=== PATIENT | female | born 1935 | race Caucasian/White ===

== ENCOUNTER 2021-06-18 14:27 | Inpatient (IN) | payer MEDICARE, OTHER, SELFPAY ==
[2021-06-18 14:32] VITALS: BP 174/74; PULSE 57; RESP 18; TEMP 36.6; O2SAT 99; BMI 25.7
[2021-06-18 14:46] LABS: Bedside Glucose 218 mg/dL (70-110)
--- NOTE | 2021-06-18 15:30 | CT_ITS ---
STUDY: CT BRAIN WITHOUT CONTRAST REASON FOR EXAM: Female, 85 years old. weakness RADIATION DOSAGE (If Supplied By Facility): CTDIvol = ( 44.99 ) mGy, DLP = ( 745.49 ) mGycm TECHNIQUE: Transaxial CT imaging of the brain was performed without administration of intravenous contrast material. Individualized dose optimization techniques were used for this CT. COMPARISON: No relevant priors. FINDINGS: Normal soft tissue structures. Normal calvarium. Encephalomalacia left occipital lobe. Normal size ventricles and extra-axial spaces for the patient''s age. Normal white matter tracts of the cerebral hemispheres. Normal basal ganglia and thalami. Normal brainstem. Normal cerebellum. There is no intracranial hemorrhage. There are no findings of an acute ischemic infarction. Normal visualized paranasal sinuses. CT/Brain/Head without Contrast IMPRESSION: Left occipital encephalomalacia. No acute disease. Electronically Signed: Rodney Elias MD at 16:11 EST , Service support ,
--- NOTE | 2021-06-18 15:31 | EKG12_ITS ---
Test Reason : LOW BLOOD SUGAR Blood Pressure : / mmHG Vent. Rate : 073 BPM Atrial Rate : 073 BPM P-R Int : 182 ms QRS Dur : 066 ms QT Int : 350 ms P-R-T Axes : 078 034 187 degrees QTc Int : 385 ms Normal sinus rhythm Normal ECG Confirmed by LAKESHIA MENEZES, MARVEL ([id number]), avid editor TEA ENGLISH ([id number]) on 06/21/2021 12:13:36 PM Referred By: CHUCKY Confirmed By:MARVEL ASHER MD
--- NOTE | 2021-06-18 15:33 | EDS_ITS ---
HPI History of Present Illness Chief Complaint: Hypoglycemia Narrative Narrative: Patient called because she has been feeling weak at home. She states she has been weak today but she has felt a bit weak the last couple days. She has not really been eating or drinking much. But she is not nauseated vomiting having diarrhea or any abdominal pain. No cough no chest pain no trouble breathing. No specific symptoms other than she just feels kind of weak. She does live alone at home. She knows she is on Amaryl for diabetes. She takes Eliquis for blood pressure. She has had bypass surgery about 5 years ago. Never had a stroke. She is on other meds but do not know what they are. She tried to bring them but she grabbed the wrong bag. Blood sugar was about 45 at home. She does feel better now that her blood sugar is up. Nothing specifically made her symptoms worse. Glucose did make them better. EMS was concerned because it seems like the patient is hoarding. However she states she is happy at her house. [facility] Medical History Afib Home Medications allopurinol 100 mg PO DAILY 06/18/21 [History Last Taken Unknown] apixaban [Eliquis] 5 mg PO BID 06/18/21 [History Last Taken Unknown] atorvastatin 40 mg PO DAILY 06/18/21 [History Last Taken Unknown] clonidine HCl 0.2 mg PO BID 06/18/21 [History Last Taken Unknown] diltiazem HCl [Cartia XT] 120 mg PO DAILY 06/18/21 [History Last Taken Unknown] glimepiride 4 mg PO DAILY 06/18/21 [History Last Taken Unknown] Allergy/AdvReac Type Severity Reaction Status Date / Time No Known Allergies Allergy Verified 06/18/21 14:41 Social History Smoking Status: Never smoker ROS ROS ED Constitutional Constitutional ED: Denies chills or fever(s) Eyes Eyes: Denies blurry vision ENT ENT ED: Denies rhinorrhea or sore throat Cardiovascular Cardiovascular: Denies chest pain, palpitations or racing heartbeat Respiratory/Chest Respiratory/Chest: Denies cough, dyspnea, dyspnea on exertion or sputum Gastrointestinal Gastrointestinal: Denies abdominal pain, diarrhea, melena, nausea or vomiting Genitourinary Genitourinary ED: Denies dysuria or hematuria Musculoskeletal Musculoskeletal: Denies myalgias Integumentary Denies rash Neurologic Neurologic: Denies headache(s), paresthesias or weakness Psychiatric Psychiatric: Denies anxiety or depression Endocrine Endocrinology: Denies polydipsia or polyuria Allergic/Immunologic Allergic/Immunologic ED: Denies mouth swelling or urticaria EXAM Physical Exam Const Vital Signs: 06/18/21 14:32 06/18/21 14:38 06/18/21 16:40 Temperature 97.9 F Temperature Source Oral Pulse Rate 57 L Respiratory Rate 18 Respiratory Pattern Normal Blood Pressure 174/74 H Blood Pressure Mean 107 Pulse Ox 99 96 Oxygen Delivery Method Room Air 06/18/21 18:08 Temperature Temperature Source Pulse Rate 70 Respiratory Rate 18 Respiratory Pattern Blood Pressure 168/70 H Blood Pressure Mean 102 Pulse Ox 96 Oxygen Delivery Method Room Air Patient is awake alert and appropriate. She is very cooperative. She is not the best informant for details but she is pretty good. She is nontoxic in appearance. She drank her jug of milk and had some applesauce. I am encouraging her to eat more food. Positive well nourished and well developed General Appearance ED: well developed and NAD; Negative for cyanotic or diaphoretic HEENT Reports dry mucous membranes HEENT Narrative: Mildly dry mucous membranes. I see no sign of head trauma or injury. Mouth ED: Yes dry mucous membranes Mouth: dry mucous membranes Eyes PERRL and EOMs intact bilaterally Neck no lymphadenopathy and no JVD Chest Wall inspection of chest normal Chest Narrative: Well-healed median sternotomy Resp normal respiratory effort and clear to auscultation bilaterally Cardio regular rate and regular rhythm GI normal to inspection, nondistended, normoactive bowel sounds Back/Spine no CVA tenderness Extremity normal to inspection General Extremety ED: Negative for edema or tenderness General Extremity: Negative for edema Psych mental status grossly normal Skin no rashes or lesions noted and no wounds MDM MDM MDM Narrative Medical decision making narrative: Blood work showed essentially normal CBC. Electrolytes show an acute kidney injury. I do not have old creatinine but she has no history of kidney disease and she does look dehydrated and has a history consistent with dehydration. Therefore I think this is an acute process. LFTs show no marked abnormalities. Glucose was better at 215. She did eat some food here. Chest x-ray showed no marked acute changes. Her Covid was positive. Urine did not show sign of infection. We tried to walk the patient. She did not desaturate but she is far too weak to even begin getting up out of bed. She evidently has been sitting in bed in a chair for about 2 days. She has not been eating. I do not think this lady can go home. She does live alone. I discussed case with the hospitalist. Lab Data Attestation: I reviewed the patient's lab results. Labs: Laboratory Results - last 24 hr 06/18/21 06/18/21 06/18/21 14:37 14:41 14:41 WBC 5.5 RBC 4.05 L Hgb 12.1 Hct 37.5 MCV 92.6 MCH 29.9 MCHC 32.3 RDW Std Deviation 47.7 H RDW Coeff of Bin 14.0 Plt Count 212 MPV 10.4 Immature Gran % (Auto) 0.200 Neut % (Auto) 87.1 H Lymph % (Auto) 7.6 L Pine % (Auto) 5.1 Eos % (Auto) 0.0 Baso % (Auto) 0.0 Absolute Neuts (auto) 4.8 Absolute Lymphs (auto) 0.42 L Nucleated RBC % 0 Differential Comment SCANNED Sodium 135 L Potassium 3.9 Chloride 103 Carbon Dioxide 23.0 Anion Gap 9 BUN 44 H Creatinine 2.35 H Estim Creat Clear Calc 14.65 Est GFR (MDRD) Af Amer 25 L Est GFR (MDRD) Non-Af 21 L BUN/Creatinine Ratio 18.7 Glucose 215 H Calcium 10.1 Total Bilirubin 0.50 AST 49 H ALT 33 Alkaline Phosphatase 53 Troponin I High Sens 43 Total Protein 8.2 Albumin 2.9 L Globulin 5.3 H Albumin/Globulin Ratio 0.5 L Urine Color Urine Clarity Urine pH Ur Specific [place] Urine Protein Urine Glucose (UA) Urine Ketones Urine Occult Blood Urine Nitrite Urine Bilirubin Urine Urobilinogen Ur Leukocyte Esterase Urine RBC Urine WBC Ur Squamous Epith Cells Amorphous Sediment Urine Bacteria Urine Mucus POC Glucose 218 H 06/18/21 17:12 WBC RBC Hgb Hct MCV MCH MCHC RDW Std Deviation RDW Coeff of Bin Plt Count MPV Immature Gran % (Auto) Neut % (Auto) Lymph % (Auto) Pine % (Auto) Eos % (Auto) Baso % (Auto) Absolute Neuts (auto) Absolute Lymphs (auto) Nucleated RBC % Differential Comment Sodium Potassium Chloride Carbon Dioxide Anion Gap BUN Creatinine Estim Creat Clear Calc Est GFR (MDRD) Af Amer Est GFR (MDRD) Non-Af BUN/Creatinine Ratio Glucose Calcium Total Bilirubin AST ALT Alkaline Phosphatase Troponin I High Sens Total Protein Albumin Globulin Albumin/Globulin Ratio Urine Color Yellow Urine Clarity Clear Urine pH 5.0 Ur Specific [place] 1.025 Urine Protein 100 H Urine Glucose (UA) 100 H Urine Ketones 5 H Urine Occult Blood 25 H Urine Nitrite Negative Urine Bilirubin Negative Urine Urobilinogen Normal Ur Leukocyte Esterase Negative Urine RBC 0 SEEN Urine WBC 0 SEEN Ur Squamous Epith Cells 0 SEEN Amorphous Sediment 2+ Urine Bacteria 0 SEEN Urine Mucus 0 SEEN POC Glucose Radiography Diagnostic Testing: Clinical Impression(s) from Imaging Studies Brain CT 06/18/21 15:30 IMPRESSION: Left occipital encephalomalacia. No acute disease. Electronically Signed: Rodney Elias MD at 16:11 EST , Service support , Chest X-Ray 06/18/21 15:55 IMPRESSION: COPD. Sternotomy. No acute disease. Electronically Signed: Rodney Elias MD at 16:09 EST , Service support , Discharge Plan Triage Chief Complaint: Hypoglycemia ED Provider: Dalton Richard Dx/Rx/DC Orders Clinical Impression: Acute kidney injury, COVID, Inability to ambulate due to multiple joints, Acute dehydration, Hypoglycemia associated with diabetes Prescriptions: No Action atorvastatin 40 mg tablet 40 mg PO DAILY RF: 0 allopurinol 100 mg tablet 100 mg PO DAILY RF: 0 clonidine HCl 0.2 mg tablet 0.2 mg PO BID RF: 0 glimepiride 4 mg tablet 4 mg PO DAILY RF: 0 diltiazem HCl [Cartia XT] 120 mg capsule,extended release 24hr 120 mg PO DAILY RF: 0 Eliquis 5 mg Tablet 5 mg PO BID RF: 0 Primary Care Provider: Sravan Rossi Referrals: Sravan Rossi MD [Primary Care Provider] - Disposition Disposition: [facility] ([facility] Care [facility]
[2021-06-18 15:47] LABS: Absolute Lymphocyte Count 0.42 X10^3/uL (0.83-4.51); Absolute Neutrophil Count 4.8 X10^3/uL (2.0-7.7); Hematocrit 37.5 % (37-47); Hemoglobin 12.1 g/dL (12.0-15.0); Lymphocyte # 0.42 X10^3/ul (0.83-4.51); Lymphocyte % 7.6 % (19-41); Mean Corp Hgb Conc 32.3 g/dL (32-36); Mean Corpuscular Hgb 29.9 pg (27.0-32.0); Mean Corpuscular Volume 92.6 fL (81-99); Mean Platelet Vol. 10.4 fl (6.2-12.0); Monocyte# 0.28 X10^3/uL; Monocyte% 5.1 % (0-10); NRBC Flagged by Analyzer 0 % (0-5); Neutrophil % 87.1 % (47-70); POSITIVE DIFFERENTIAL YES; Platelet Count 212 K/mm3 (150-450); RBC Distribution Width SD 47.7 fl (35.1-43.9); Red Blood Count 4.05 M/mm3 (4.2-5.4); White Blood Count 5.5 K/mm3 (4.4-11.0)
[2021-06-18 15:53] LABS: Differential Indicated SCAN CRITERIA MET
--- NOTE | 2021-06-18 15:55 | RAD_ITS ---
STUDY: X-RAY CHEST REASON FOR EXAM: Female, 85 years old. cough TECHNIQUE: Single frontal view of the chest. COMPARISON: None. FINDINGS: Sternotomy wires noted. Left perihilar mediastinal clips. There is hyperinflation of the lungs consistent with chronic obstructive lung disease (COPD). There is no demonstrated pleural abnormality. Normal size heart. Normal mediastinum and mathieu. Normal visualized pulmonary arteries. Normal visualized aortic arch and descending thoracic aorta. There is a dextroscoliosis of the thoracic spine. Normal visualized ribs, clavicles, and shoulders. There is no demonstrated abnormality of the visualized soft tissue structures of the upper abdomen. RAD/Chest 1 View (Portable) IMPRESSION: COPD. Sternotomy. No acute disease. Electronically Signed: Rodney Elias MD at 16:09 EST , Service support ,
[2021-06-18 16:16] LABS: ALB/GLOB Ratio 0.5 RATIO (0.9-2.4); AST(SGOT) 49 U/L (15-37); Alanine Aminotransfer ALT/SGPT 33 U/L (13-56); Albumin, Serum 2.9 g/dL (3.2-5.0); Alkaline Phosphatase 53 U/L (45-117); Anion Gap 9 (5-15); BUN 44 mg/dL (7-18); BUN/Creat Ratio 18.7 RATIO (10-20); Calcium,Total 10.1 mg/dL (8.5-10.1); Chloride 103 mmol/L (98-107); Creatinine, Serum 2.35 mg/dL (0.55-1.02); EST Glomerular Filtration Rate 21 mL/min (>60); Est Glom Filt Rate - Afr Amer 25 mL/min (>60); Estimated Creatinine Clearance 14.65 ml/min; Globulin 5.3 g/dL (2.2-4.2); Glucose 215 mg/dL (74-106); Potassium 3.9 mmol/L (3.5-5.1); Protein, Total 8.2 g/dL (6.4-8.2); Sodium Level 135 mmol/L (136-145); Troponin-I HS 43 pg/mL (3.0-54.0)
[2021-06-18 16:35] LABS: Differential Comment SCANNED
[2021-06-18 16:40] VITALS: O2SAT 96
[2021-06-18 17:17] LABS: Bacteria 0 SEEN /hpf (None Seen); Mucous, Urine 0 SEEN /hpf (<or=2+); Red Blood Cells-Urine 0 SEEN /hpf (0-5); Squamous Epithelial Cells - UA 0 SEEN /hpf (5-10); White Blood Cells 0 SEEN /hpf (0-5)
[2021-06-18 17:31] LABS: Color, Urine Yellow (Yellow); Glucose, Dipstick 100 mg/dl (Normal); Ketone-Dipstick 5 mg/dl (Negative); Leukocyte Esterase-Dipstick Negative /ul (Negative); Nitrite-Dipstick Negative (Negative); Occult Blood-Urine 25 /ul (Negative); Protein-Dipstick 100 mg/dl (Negative); Specific Gravity, Urine 1.025 (1.002-1.030); Urine Bilirubin Dipstick Negative (Negative); Urine Clarity Clear (Clear); Urine Urobilinogen Normal (Normal)
[2021-06-18 17:42] LABS: Amorphous Sediment 2+
[2021-06-18 18:08] VITALS: BP 168/70; PULSE 70; RESP 18; O2SAT 96
--- NOTE | 2021-06-18 18:11 | HP.PCM.HOS_ITS ---
HPI - General General Date of Admission: 06/18/21 HPI Narrative HAL EVERETT, is a 85 F with a PMh as outlined who presented via the ED on 06/18/2021 with a complaint of weakness and lethargy. This had been going on for a couple of days prior to admission, and she admitted to not eating or drinking much. She denied any fever, chills, nausea, cough, chest pain, shortness of breath or any other symptoms. She said she hadnt been able to get out of her chair for the last couple of days. She called the EMS and she was found to be hypoglycemic with blood sugar of 45. She was on glimepiride at home which she has not been taking at home as her blood sugars have been running low at home. Hypoglycemia resolved with administration of a meal in the ED. During her workup, she was found to be covid positive. Vitals were BP of 168/70, MS of 70, RR of 18 and oxygen sats of 96% on room air. CBC was unremarkable, and BMp showed sodium of 135, and Cr of 2.35, with no known baseline. Glucose had come up to 215 after she had a meal in the ED. Urinalysis was negative for bacteria or any evidence of UTI. COVID antigen test was negative; CXR showed evidence of COPD and sternotomy but no acute disease. Patient was very weak in the ED and couldnt even stand without assistance. She therefore couldnt be discharged home, and was admitted to be managed for lethargy and weakness and asymptomatic covid pneumonia as well as hypoglycemia. [facility]LY [facility], [facility] Medical History Afib Home Medications allopurinol 100 mg PO DAILY 06/18/21 [History Last Taken Unknown] apixaban [Eliquis] 5 mg PO BID 06/18/21 [History Last Taken Unknown] atorvastatin 40 mg PO DAILY 06/18/21 [History Last Taken Unknown] clonidine HCl 0.2 mg PO BID 06/18/21 [History Last Taken Unknown] diltiazem HCl [Cartia XT] 120 mg PO DAILY 06/18/21 [History Last Taken Unknown] glimepiride 4 mg PO DAILY 06/18/21 [History Last Taken Unknown] Allergy/AdvReac Type Severity Reaction Status Date / Time No Known Allergies Allergy Verified 06/18/21 14:41 Social History Smoking Status: Never smoker ROS Constitutional Constitutional: Reports fatigue, malaise and weakness; Denies anorexia, change in weight, chills or fever(s) Eyes Eyes: Denies change in vision ENT HEENT: Denies dysphagia, headache(s), nasal congestion, nasal discharge, sinus pressure or sore throat Cardiovascular Cardiovascular: Denies chest pain, dyspnea on exertion, edema, lightheadedness, orthopnea, palpitations, paroxysmal nocturnal dyspnea or rapid heart rate Respiratory/Chest Respiratory/Chest: Reports dyspnea; Denies cough, productive cough, shortness of breath at rest, shortness of breath with exertion or wheezing Gastrointestinal Gastrointestinal: Reports diarrhea; Denies abdominal pain, constipation, dyspepsia, nausea or vomiting Genitourinary Genitourinary: Denies dysuria Musculoskeletal Musculoskeletal: Denies arthralgias or back pain Neurologic Neurologic: Denies confusion, dizziness, focal weakness, headache(s), numbness, paresthesias, seizures or syncope Endocrine Endocrinology: Denies change in body appearance Hematologic/Lymphatic Hematologic/Lymphatic: Denies anemia Allergic/Immunologic Allergic/Immunologic: Denies asthma Vital Signs Vital Signs Vital Signs: 06/18/21 14:32 06/18/21 14:38 06/18/21 16:40 Temperature 97.9 F Temperature Source Oral Pulse Rate 57 L Respiratory Rate 18 Respiratory Pattern Normal Blood Pressure 174/74 H Blood Pressure Mean 107 Pulse Ox 99 96 Oxygen Delivery Method Room Air 06/18/21 18:08 Temperature Temperature Source Pulse Rate 70 Respiratory Rate 18 Respiratory Pattern Blood Pressure 168/70 H Blood Pressure Mean 102 Pulse Ox 96 Oxygen Delivery Method Room Air Weight Weight: 119 lb 0.794 oz Body Mass Index (BMI) 25.7 Physical Exam Const alert and oriented x3 General Appearance: cooperative Orientation / Consciousness: lethargic HEENT normocephalic and hearing grossly normal bilaterally HEENT Narrative: dry oral mucosa Eyes PERRL, EOMs intact bilaterally and conjunctivae normal Neck no lymphadenopathy, supple and no JVD Resp normal respiratory effort, no retractions, no use of accessory muscles and clear to auscultation bilaterally Cardio regular rate, regular rhythm, S1 normal heart sound, S2 normal heart sound and no murmurs GI normal to inspection, nondistended, normoactive bowel sounds, soft to palpation, non-tender, non-distended and hepatosplenomegaly Extremity normal to inspection, full ROM and no clubbing, cyanosis or edema Peripheral Pulses: Yes pulses 2+ throughout Skin no rashes or lesions noted Neuro oriented x3, CN's II-XII intact bilaterally and moves all extremities Sensorium / Orientation: awake and alert Psych affect normal Results Lab / Micro Data Result Diagrams: 06/18/21 14:41 06/18/21 14:41 Labs: Laboratory Results - last 24 hr 06/18/21 14:37: POC Glucose 218 H 06/18/21 14:41: WBC 5.5, RBC 4.05 L, Hgb 12.1, Hct 37.5, MCV 92.6, MCH 29.9, MCHC 32.3, RDW Std Deviation 47.7 H, RDW Coeff of Bin 14.0, Plt Count 212, MPV 10.4, Immature Gran % (Auto) 0.200, Neut % (Auto) 87.1 H, Lymph % (Auto) 7.6 L, [place] % (Auto) 5.1, Eos % (Auto) 0.0, Baso % (Auto) 0.0, Absolute Neuts (auto) 4.8, Absolute Lymphs (auto) 0.42 L, Nucleated RBC % 0, Differential Comment SCANNED 06/18/21 14:41: Sodium 135 L, Potassium 3.9, Chloride 103, Carbon Dioxide 23.0, Anion Gap 9, BUN 44 H, Creatinine 2.35 H, Estim Creat Clear Calc 14.65, Est GFR (MDRD) Af Amer 25 L, Est GFR (MDRD) Non-Af 21 L, BUN/Creatinine Ratio 18.7, Glucose 215 H, Calcium 10.1, Total Bilirubin 0.50, AST 49 H, ALT 33, Alkaline Phosphatase 53, Troponin I High Sens 43, Total Protein 8.2, Albumin 2.9 L, Breanne bulin 5.3 H, Albumin/Globulin Ratio 0.5 L 06/18/21 17:12: Urine Color Yellow, Urine Clarity Clear, Urine pH 5.0, Ur Specific [place] 1.025, Urine Protein 100 H, Urine Glucose (UA) 100 H, Urine Ketones 5 H, Urine Occult Blood 25 H, Urine Nitrite Negative, Urine Bilirubin Negative, Urine Urobilinogen Normal, Ur Leukocyte Esterase Negative, Urine RBC 0 SEEN, Urine WBC 0 SEEN, Ur Squamous Epith Cells 0 SEEN, Amorphous Sediment 2+, Urine Bacteria 0 SEEN, Urine Mucus 0 SEEN Micro: Microbiology 06/18/21 15:37 Nasal Secretion SARS-CoV-2 Antigen (Rapid) - Final Radiology Impression Brain CT 06/18/21 15:30 IMPRESSION: Left occipital encephalomalacia. No acute disease. Electronically Signed: Rodney Elias MD at 16:11 EST , Service support , Chest X-Ray 06/18/21 15:55 IMPRESSION: COPD. Sternotomy. No acute disease. Electronically Signed: Rodney Elias MD at 16:09 EST , Service support , Assessment & Plan Assessment/Plan (1) Acute kidney injury: (2) COVID: (3) Hypoglycemia associated with diabetes: (4) Acute dehydration: (5) Debility: PLAN: #Debility due to COVID and hypoglycemia * admit to med surg * PT/OT consult. Fall precautions. * CT of the brain showed left occipital encephalomalacia * #Hypoglycemia * likely due to decreased intake and taking her diabetes meds * hold oral diabetes meds * ISS. Accuchecks ACHS * encourage oral diet * #CHASE: * Cr is 2.53. No baseline known. * Likely pre-renal due to decreased intake.hydrate gently with IVF and trend Cr. * If Cr doesnt trend down, will get workup with renal USG and urine electrolytes #Asymptomatic covid 19 infection * on room air. * hold off on starting decadron as she is asymptomatic. * breathing treatment with bronchodilators. * DVT prophylaxis: lovenox Charges/Coding Visit Charges Inpatient E&M: 94728 Init Hosp L3
[2021-06-18 18:34] VITALS: BP 167/75; PULSE 80; RESP 18; TEMP 36.6; O2SAT 99
--- NOTE | 2021-06-18 18:35 | ED.RN ---
PT DAUGHTER CALLED TO CHECK ON PT STATUS. AWARE PT TO BE ADMITTED. FAMILY MADE AWARE OF CHANTAL CONCERNS ABOUT PT LIVING CONDITIONS. AWARE [facility] TO CALL ADULT PROTECTIVE SERVICES. ACCORDING TO CHANTAL PT ALSO HOARDING AND [facility] WAS UNABLE TO ENTER HOME. PT HAS NURSE WHO VISITS ONCE A WEEK, BUT NO DAILY CARE. PT STATES HAS NOT EATEN FOR DAYS DO TO BEING TO WEAK
[2021-06-18 19:38] VITALS: BMI 24.6
[2021-06-18] MEDS: 0.9% Saline Lock 10 ML Syringe IV (19:58)
[2021-06-18] MEDS: 0.9% Normal Saline 1,000 ML 125 ML IV (19:58)
[2021-06-18 20:02] VITALS: BP 179/66; PULSE 77; RESP 18; TEMP 37.7; O2SAT 95
[2021-06-18] MEDS: Dextrose 50%-Water 25 GM/50 ML DISP.SYRIN IV (21:25)
[2021-06-18] MEDS: cloNIDine HCl 0.2 MG Tablet PO (21:27)
[2021-06-18] MEDS: APIXABAN 5 MG TABLET PO (21:28)
--- NOTE | 2021-06-18 21:39 | NURSING ---
blood glucose at 2119 was 27, pt given 1/2 amp D50 at 2124 and OJ to drink. rechecked at 2134 and blood sugar 107
[2021-06-18 21:56] LABS: Bedside Glucose 107 mg/dL (70-110)
[2021-06-18 21:56] LABS: Bedside Glucose 27 mg/dL (70-110)
[2021-06-18 23:00] VITALS: BP 119/79; PULSE 82; RESP 18; TEMP 37.7; O2SAT 93
[2021-06-18 23:11] LABS: Bedside Glucose 70 mg/dL (70-110)
[2021-06-18 23:45] LABS: Bedside Glucose 85 mg/dL (70-110)
[2021-06-19] VITALS (10 sets, daily range): BP systolic 128–145; BP diastolic 44–82; PULSE 58–85; RESP 18–24; TEMP 36.8–39.3; O2SAT 96–99
--- NOTE | 2021-06-19 00:14 | PCS.PANDOC ---
PANDEMIC DOCUMENTATION INITIATED: Date: 01/30/2021 Time: 190
[2021-06-19 00:46] LABS: Bedside Glucose 92 mg/dL (70-110)
[2021-06-19 02:01] LABS: Bedside Glucose 92 mg/dL (70-110)
--- NOTE | 2021-06-19 03:04 | PCM.PN.BLA ---
Progress Note With persistent hypoglycemia normal saline and will be changed to dextrose infusion. Correction scale insulin that patient has not received yet will be discontinued.
[2021-06-19] MEDS: Dext 5%-0.45% NS 1,000 ML 100 ML IV ×3 (03:06→23:36)
[2021-06-19 03:16] LABS: Bedside Glucose 69 mg/dL (70-110)
[2021-06-19 05:45] LABS: Bedside Glucose 94 mg/dL (70-110)
[2021-06-19 06:52] LABS: Absolute Lymphocyte Count 1.04 X10^3/uL (0.83-4.51); Absolute Neutrophil Count 4.5 X10^3/uL (2.0-7.7); Hemoglobin 10.8 g/dL (12.0-15.0); Lymphocyte # 1.04 X10^3/ul (0.83-4.51); Lymphocyte % 17.4 % (19-41); Mean Corp Hgb Conc 31.8 g/dL (32-36); Mean Corpuscular Hgb 29.6 pg (27.0-32.0); Mean Corpuscular Volume 93.2 fL (81-99); Monocyte# 0.41 X10^3/uL; Monocyte% 6.9 % (0-10); NRBC Flagged by Analyzer 0 % (0-5); Neutrophil # 4.49 X10^3/uL (2.7-7.7); Neutrophil % 75.4 % (47-70); Platelet Count 200 K/mm3 (150-450); RBC Distribution Width CV 13.8 % (11.6-14.6); RBC Distribution Width SD 47.8 fl (35.1-43.9); Red Blood Count 3.65 M/mm3 (4.2-5.4)
[2021-06-19 07:02] LABS: Anion Gap 6 (5-15); BUN 35 mg/dL (7-18); BUN/Creat Ratio 20.3 RATIO (10-20); Calcium,Total 8.8 mg/dL (8.5-10.1); Chloride 105 mmol/L (98-107); Creatinine, Serum 1.72 mg/dL (0.55-1.02); EST Glomerular Filtration Rate 30 mL/min (>60); Est Glom Filt Rate - Afr Amer 36 mL/min (>60); Estimated Creatinine Clearance 19.16 ml/min; Glucose 92 mg/dL (74-106); Potassium 3.7 mmol/L (3.5-5.1); Sodium Level 136 mmol/L (136-145)
[2021-06-19] MEDS: Enoxaparin 30 MG/0.3 ML Syringe SC (09:30)
[2021-06-19] MEDS: dilTIAZem CD 120 MG Capsule PO (09:31)
[2021-06-19] MEDS: Atorvastatin Calcium 40 MG Tablet PO (09:31)
[2021-06-19] MEDS: cloNIDine HCl 0.2 MG Tablet PO ×2 (09:31→22:33)
[2021-06-19] MEDS: Allopurinol 100 MG Tablet PO (09:31)
[2021-06-19] MEDS: APIXABAN 5 MG TABLET PO ×2 (09:31→22:33)
[2021-06-19] MEDS: Acetaminophen 325 MG Tablet 650 MG PO ×2 (09:44→20:50)
[2021-06-19 11:26] LABS: Bedside Glucose 90 mg/dL (70-110)
[2021-06-19 11:46] LABS: Bedside Glucose 140 mg/dL (70-110)
[2021-06-19] MEDS: Menthol/Lanolin/Calamine/Znox 113 GM Tube 1 APPLIC TOPICAL ×2 (12:34→22:33)
--- NOTE | 2021-06-19 13:46 | CASEMGMT ---
Social Work Note SW reviewed chart, aware that squad was going to make APS report on pt due to pt's living conditions. Squad reporting that pt is hoarder and was unable to enter pt's home. DELFINA to continue to follow, will update APS on pt's disposition. Violetta Manjarrez SECOND RIGGER, LEGAL REFEREE
--- NOTE | 2021-06-19 17:09 | CASEMGMT ---
Addendum entered by Violetta Manjarrez 06/19/21 17:25: Pt is also on Oxygen at night through [facility]. Original Note: Social Work Assessment Referral Date: 06/19/2021 Date of Assessment: 06/19/2021 Reason for consult: APS report, SNF placement Informant: DELFINA Personal Status: SW met with pt to complete initial assessment. Pt is alert and orientated x3, answers questions appropriately. Living Arrangements: Pt states that she lives alone in a one story home with no steps to enter. PCP: Sravan Rossi [facility]acy: [facility] D[facility]: [facility] ADLs: Pt states she is able to cook, drive self, bath self, but has difficulty cleaning. Pt states she has been trying to get help with cleaning but has been unsuccessful. Pt states he is able to feed herself at home and has been eating at home. Supports: Pt states that she has friends that live close to her. Substance Abuse Hx: Pt denied Mental Health Hx: Pt states she has some Anxiety, states she takes Anxiety Medication PRN. HHC: Pt states she has an RN that comes out once a week. Pt states HHC is arranged through [facility]. SNF: Pt states that she was at [facility] recently. States it was last year she was at SNF. Pt states she has been out longer than 60 days from her recent SNF stay. APS Report: SW asked pt about Hoarding. Pt denied hoarding. Pt states that she is able to take care of herself (cooking, bathing, feeding, transportation). Pt does state some difficulty with cleaning. SW spoke with pt about discharge plans. Pt states she doesn't know what her plan is. Pt states that she currently doesn't have a door at her home as the squad had to break it down to enter pt's home. Pt states at this time, her door is currently not fixed. Pt states that her neighbor is updating her on when her door will be fixed. Pt states she cannot return home if she doesn't have a door. Pt states that if her door gets fixed she would like to return home. SW asked pt what her alternative plan will be if her door is not fixed. Pt states she may have to go back to SNF. Patient was provided a list of SNF providers including quality and resource use data and consistent with the patient?s preferred geographic region, medical needs, and insurance network. SW informed pt that the only SNF accepting COVID+ pt's is [facility] in [place]. Pt agreeable to this worker sending a referral to [facility]. SW informed pt that this worker will send a referral, likey tomorrow, as it is close to admissions leaving for the day. Pt states understanding. SW to fax referral to [facility] tomorrow. SW updated physician. SW to update APS on pt's disposition when pt discharges. Plan: TBD, Likely SNF. Violetta Manjarrez CERAMIC TILE INSTALLER, GENERAL UTILITY MACHINE OPERATOR
[2021-06-19 17:15] LABS: Bedside Glucose 181 mg/dL (70-110)
--- NOTE | 2021-06-19 17:16 | PN.HOSP_ITS ---
Subjective Subjective Doing well, maintaining her oxygen on about 2 L nasal cannula. She does seem a little bit unsteady on her feet we will have her evaluated by PT/OT Objective Data Objective Data Vital Signs: Vital Signs Temp Pulse Resp BP Pulse Ox 98.3 F 65 18 135/44 H 97 06/19/21 15:30 06/19/21 15:30 06/19/21 15:30 06/19/21 15:30 06/19/21 15:30 Oxygen Flow Rate (L/min) 2 Oxygen Delivery Method Nasal Cannula Weight: 113 lb 15.664 oz Body Mass Index (BMI) 24.6 Intake & Output: Intake and Output for Last 24 Hours 06/18/21 06/19/21 06/20/21 03:59 03:59 03:59 Intake Total 1751.67 / 1751.67 945 / 945 Output Total 150 / 150 Balance 1751.67 / 1751.67 795 / 795 Lab / Micro Data Result Diagrams: 06/20/21 06:40 06/20/21 06:40 Labs: Laboratory Results - last 24 hr 06/18/21 17:12: Urine Color Yellow, Urine Clarity Clear, Urine pH 5.0, Ur Specific [place] 1.025, Urine Protein 100 H, Urine Glucose (UA) 100 H, Urine Ketones 5 H, Urine Occult Blood 25 H, Urine Nitrite Negative, Urine Bilirubin Negative, Urine Urobilinogen Normal, Ur Leukocyte Esterase Negative, Urine RBC 0 SEEN, Urine WBC 0 SEEN, Ur Squamous Epith Cells 0 SEEN, Amorphous Sediment 2+, Urine Bacteria 0 SEEN, Urine Mucus 0 SEEN 06/18/21 21:21: POC Glucose 27 L* 06/18/21 21:38: POC Glucose 107 06/18/21 22:56: POC Glucose 70 06/18/21 23:32: POC Glucose 85 06/19/21 00:35: POC Glucose 92 06/19/21 01:41: POC Glucose 92 06/19/21 02:48: POC Glucose 69 L 06/19/21 04:25: POC Glucose 94 06/19/21 06:00: POC Glucose 90 06/19/21 06:10: WBC 6.0, RBC 3.65 L, Hgb 10.8 L, Hct 34.0 L, MCV 93.2, MCH 29.6, MCHC 31.8 L, RDW Std Deviation 47.8 H, RDW Coeff of Bin 13.8, Plt Count 200, MPV 10.0, Immature Gran % (Auto) 0.300, Neut % (Auto) 75.4 H, Lymph % (Auto) 17.4 L, [place] % (Auto) 6.9, Eos % (Auto) 0.0, Baso % (Auto) 0.0, Absolute Neuts (auto) 4.5, Absolute Lymphs (auto) 1.04, Nucleated RBC % 0 06/19/21 06:10: Sodium 136, Potassium 3.7, Chloride 105, Carbon Dioxide 25.0, Anion Gap 6, BUN 35 H, Creatinine 1.72 H, Estim Creat Clear Calc 19.16, Est GFR (MDRD) Af Amer 36 L, Est GFR (MDRD) Non-Af 30 L, BUN/Creatinine Ratio 20.3 H, Glucose 92, Calcium 8.8 06/19/21 11:39: POC Glucose 140 H 06/19/21 16:41: POC Glucose 181 H Micro: Microbiology 06/18/21 15:37 Nasal Secretion SARS-CoV-2 Antigen (Rapid) - Final Physical Exam Const alert, oriented x3 and no apparent distress General Appearance: cooperative HEENT normocephalic and moist oral mucous membranes Eyes PERRL, EOMs intact bilaterally and conjunctivae normal Neck supple and no JVD Resp normal respiratory effort, no retractions and no use of accessory muscles Auscultation: diminished lung sounds; Negative for crackles, rales, rhonchi or wheezes Cardio regular rate, regular rhythm, S1 normal heart sound, S2 normal heart sound and no murmurs GI soft to palpation, non-tender and non-distended; Negative for hepatosplenomegaly Extremity no clubbing, cyanosis or edema Skin no rashes or lesions noted Neuro no focal motor deficits and no sensory deficits noted Psych affect normal Appearance: appropriate Assessment & Plan Assessment/Plan (1) Acute kidney injury: (2) COVID: (3) Hypoglycemia associated with diabetes: (4) Acute dehydration: (5) Debility: PLAN: #Debility due to COVID and hypoglycemia * admit to med surg * PT/OT consult. Fall precautions. 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 We will continue to monitor and if her respiratory status worsens will start her on treatment #Hypoglycemia * likely due to decreased intake and taking her diabetes meds * hold oral diabetes meds * ISS. Accuchecks ACHS * encourage oral diet, will continue with D5 fluids in the meantime #CHASE: * Cr is 2.53. No baseline known. * Likely pre-renal due to decreased intake.hydrate gently with IVF and trend Cr. * Creatinine is improving currently 1.72 DVT: lovenox Charges/Coding Visit Charges Inpatient E&M: 49848 Subs Hosp L2
[2021-06-19 22:40] LABS: Bedside Glucose 178 mg/dL (70-110)
[2021-06-20] VITALS (12 sets, daily range): BP systolic 119–159; BP diastolic 40–95; PULSE 51–82; RESP 16–22; TEMP 36.5–39.1; O2SAT 92–99
[2021-06-20] MEDS: Menthol/Lanolin/Calamine/Znox 113 GM Tube 1 APPLIC TOPICAL ×3 (06:14→20:56)
[2021-06-20 06:55] LABS: Bedside Glucose 91 mg/dL (70-110)
[2021-06-20 07:56] LABS: Absolute Lymphocyte Count 1.21 X10^3/uL (0.83-4.51); Absolute Neutrophil Count 4.6 X10^3/uL (2.0-7.7); Basophil# 0.01 X10^3/uL; Basophil% 0.2 % (0-1); Hematocrit 34.7 % (37-47); Hemoglobin 11.7 g/dL (12.0-15.0); Lymphocyte # 1.21 X10^3/ul (0.83-4.51); Lymphocyte % 19.8 % (19-41); Mean Corp Hgb Conc 33.7 g/dL (32-36); Mean Platelet Vol. 10.4 fl (6.2-12.0); Monocyte# 0.28 X10^3/uL; Monocyte% 4.6 % (0-10); NRBC Flagged by Analyzer 0 % (0-5); Neutrophil # 4.57 X10^3/uL (2.7-7.7); Neutrophil % 74.7 % (47-70); POSITIVE MORPHOLOGY YES; Platelet Count 194 K/mm3 (150-450); RBC Distribution Width CV 13.8 % (11.6-14.6); RBC Distribution Width SD 44.8 fl (35.1-43.9); White Blood Count 6.1 K/mm3 (4.4-11.0)
[2021-06-20 08:02] LABS: Differential Indicated SCAN CRITERIA MET
[2021-06-20 08:28] LABS: Anion Gap 10 (5-15); BUN 24 mg/dL (7-18); BUN/Creat Ratio 16.4 RATIO (10-20); Calcium,Total 8.7 mg/dL (8.5-10.1); Chloride 105 mmol/L (98-107); Creatinine, Serum 1.46 mg/dL (0.55-1.02); EST Glomerular Filtration Rate 36 mL/min (>60); Est Glom Filt Rate - Afr Amer 44 mL/min (>60); Estimated Creatinine Clearance 22.57 ml/min; Glucose 115 mg/dL (74-106); Sodium Level 135 mmol/L (136-145)
[2021-06-20 08:44] LABS: Differential Comment SCANNED; Reactive Lymphocyte 1+
[2021-06-20] MEDS: Acetaminophen 325 MG Tablet 650 MG PO (09:15)
[2021-06-20] MEDS: dilTIAZem CD 120 MG Capsule PO (09:15)
[2021-06-20] MEDS: cloNIDine HCl 0.2 MG Tablet PO ×2 (09:15→20:56)
[2021-06-20] MEDS: Enoxaparin 30 MG/0.3 ML Syringe SC (09:15)
[2021-06-20] MEDS: APIXABAN 5 MG TABLET PO ×2 (09:16→20:57)
[2021-06-20] MEDS: Atorvastatin Calcium 40 MG Tablet PO (09:16)
[2021-06-20] MEDS: Allopurinol 100 MG Tablet PO (09:16)
[2021-06-20] MEDS: Dext 5%-0.45% NS 1,000 ML 100 ML IV (10:10)
--- NOTE | 2021-06-20 10:51 | CASEMGMT ---
Social Work Secure e-mail sent to Nadiya at [facility] to inquire about status of referral. Josefina Packer MSW, GALILEA
[2021-06-20 11:50] LABS: Bedside Glucose 153 mg/dL (70-110)
--- NOTE | 2021-06-20 15:27 | CASEMGMT ---
Social Work Secure E-mail to [facility] Nadiya [facility]. Nadiya reports to have clinicals but probably won't get reviewed until later. Social Work to continue to follow. Josefina COOPER, GALILEA
[2021-06-20 17:16] LABS: Bedside Glucose 266 mg/dL (70-110)
--- NOTE | 2021-06-20 19:48 | PN.HOSP_ITS ---
Subjective Subjective Doing well, no significant issues overnight. She was a little bit hypoglycemic however that has resolved and now she is in the 200s. She is no longer on oxygen. Objective Data Objective Data Vital Signs: Vital Signs Temp Pulse Resp BP Pulse Ox 98.1 F 66 16 134/40 H 94 06/20/21 16:52 06/20/21 16:52 06/20/21 16:52 06/20/21 16:52 06/20/21 16:52 Oxygen Flow Rate (L/min) 2 Oxygen Delivery Method Room Air Weight: 113 lb 15.664 oz Body Mass Index (BMI) 24.6 Intake & Output: Intake and Output for Last 24 Hours 06/19/21 06/20/21 06/21/21 03:59 03:59 03:59 Intake Total 1751.67 / 1751.67 2095 / 2095 1170 / 1170 Output Total 350 / 350 350 / 350 Balance 1751.67 / 1751.67 1745 / 1745 820 / 820 Lab / Micro Data Result Diagrams: 06/20/21 06:40 06/20/21 06:40 Labs: Laboratory Results - last 24 hr 06/19/21 22:25: POC Glucose 178 H 06/20/21 06:13: POC Glucose 91 06/20/21 06:40: WBC 6.1, RBC 3.90 L, Hgb 11.7 L, Hct 34.7 L, MCV 89.0, MCH 30.0, MCHC 33.7 D, RDW Std Deviation 44.8 H, RDW Coeff of Bin 13.8, Plt Count 194, MPV 10.4, Immature Gran % (Auto) 0.700, Neut % (Auto) 74.7 H, Lymph % (Auto) 19.8, [place] % (Auto) 4.6, Eos % (Auto) 0.0, Baso % (Auto) 0.2, Absolute Neuts (auto) 4.6, Absolute Lymphs (auto) 1.21, Nucleated RBC % 0, Differential Comment SCANNED, Reactive Lymphocytes 1+ 06/20/21 06:40: Sodium 135 L, Potassium 4.0, Chloride 105, Carbon Dioxide 20.0 L , Anion Gap 10, BUN 24 H, Creatinine 1.46 H, Estim Creat Clear Calc 22.57, Est GFR (MDRD) Af Amer 44 L, Est GFR (MDRD) Non-Af 36 L, BUN/Creatinine Ratio 16.4, Glucose 115 H, Calcium 8.7 06/20/21 11:41: POC Glucose 153 H 06/20/21 16:50: POC Glucose 266 H Micro: Microbiology 06/18/21 15:37 Nasal Secretion SARS-CoV-2 Antigen (Rapid) - Final SARS-CoV-2 (COVID 19) Physical Exam Const alert, oriented x3 and no apparent distress General Appearance: cooperative HEENT normocephalic and moist oral mucous membranes Eyes PERRL, EOMs intact bilaterally and conjunctivae normal Neck supple and no JVD Resp normal respiratory effort, no retractions and no use of accessory muscles Auscultation: diminished lung sounds; Negative for crackles, rales, rhonchi or wheezes Cardio regular rate, regular rhythm, S1 normal heart sound, S2 normal heart sound and no murmurs GI soft to palpation, non-tender and non-distended; Negative for hepatosplenomegaly Extremity no clubbing, cyanosis or edema Skin no rashes or lesions noted Neuro no focal motor deficits and no sensory deficits noted Psych affect normal Appearance: appropriate Assessment & Plan Assessment/Plan (1) Acute kidney injury: (2) COVID: (3) Hypoglycemia associated with diabetes: (4) Acute dehydration: (5) Debility: PLAN: #Debility due to COVID and hypoglycemia * admit to med surg * PT/OT consult. Fall precautions. 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 Accuchecks ACHS * encourage oral diet, will continue with D5 fluids in the meantime #CHASE: * Cr is 2.53. No baseline known. * Likely pre-renal due to decreased intake.hydrate gently with IVF and trend Cr. * Creatinine is improving currently 1.46 Disposition: Based on PT/OT evaluations as well as nursing reports, will anticipate discharge to SNF for rehab DVT: lovenox Charges/Coding Visit Charges Inpatient E&M: 30195 Subs Hosp L2
[2021-06-20] MEDS: Insulin Lispro 100 UNIT/ML INSULN.PEN SC (20:57)
[2021-06-20 22:15] LABS: Bedside Glucose 265 mg/dL (70-110)
[2021-06-21 02:10] VITALS: BP 118/92; PULSE 55; RESP 16; TEMP 36.7; O2SAT 95
[2021-06-21] MEDS: Dext 5%-0.45% NS 1,000 ML 100 ML IV ×2 (02:21→15:05)
[2021-06-21] MEDS: Acetaminophen 325 MG Tablet 650 MG PO ×3 (02:31→20:06)
[2021-06-21 02:55] LABS: Bedside Glucose 94 mg/dL (70-110)
[2021-06-21 07:02] LABS: Anion Gap 8 (5-15); BUN 23 mg/dL (7-18); BUN/Creat Ratio 15.3 RATIO (10-20); Calcium,Total 8.7 mg/dL (8.5-10.1); Chloride 107 mmol/L (98-107); EST Glomerular Filtration Rate 35 mL/min (>60); Est Glom Filt Rate - Afr Amer 42 mL/min (>60); Estimated Creatinine Clearance 21.97 ml/min; Glucose 110 mg/dL (74-106); Potassium 3.1 mmol/L (3.5-5.1); Sodium Level 138 mmol/L (136-145)
[2021-06-21] MEDS: Menthol/Lanolin/Calamine/Znox 113 GM Tube 1 APPLIC TOPICAL ×3 (07:09→20:04)
[2021-06-21 07:10] LABS: Bedside Glucose 104 mg/dL (70-110)
--- NOTE | 2021-06-21 08:55 | CASEMGMT ---
Addendum entered by Lubna Sorensen 06/21/21 13:40: Social Work SW received an email from Nadiya at [facility], they can take pt. SW spoke w/pt via phone to let her know. She states she is not feeling well today. SW let physician know pt has a bed at [facility] however pt said she is not feeling well today. SW will continue to follow. GALILEA Auguste Original Note: Social Work SW called [facility], message left regarding referral. SW will continue to follow. GALILEA Auguste
[2021-06-21] MEDS: APIXABAN 5 MG TABLET PO ×2 (09:13→20:05)
[2021-06-21] MEDS: Potassium Chloride Oral Tablet 20 MEQ 60 MEQ PO (09:13)
[2021-06-21] MEDS: Atorvastatin Calcium 40 MG Tablet PO (09:13)
[2021-06-21] MEDS: Allopurinol 100 MG Tablet PO (09:13)
[2021-06-21] MEDS: cloNIDine HCl 0.2 MG Tablet PO ×2 (09:13→20:06)
[2021-06-21] MEDS: dilTIAZem CD 120 MG Capsule PO (09:14)
[2021-06-21 09:35] VITALS: BP 156/42; PULSE 89; RESP 16; TEMP 38.6; O2SAT 93
[2021-06-21] MEDS: Insulin Lispro 100 UNIT/ML INSULN.PEN SC ×3 (11:28→20:18)
[2021-06-21 11:30] VITALS: BP 130/42; PULSE 52; RESP 16; TEMP 37.1; O2SAT 95
[2021-06-21 11:55] LABS: Bedside Glucose 165 mg/dL (70-110)
[2021-06-21 15:14] VITALS: BP 118/56; PULSE 62; RESP 18; TEMP 37.2; O2SAT 96
--- NOTE | 2021-06-21 15:28 | PN.HOSP_ITS ---
Subjective Subjective Seems to be doing well however she routinely has fevers in the morning that resolved by the afternoon. She does have a few more lung sounds today and her potassium was low. She does endorse feeling much better than she did when she first came in Objective Data Objective Data Vital Signs: Vital Signs Temp Pulse Resp BP Pulse Ox 98.9 F 62 18 118/56 L 96 06/21/21 15:14 06/21/21 15:14 06/21/21 15:14 06/21/21 15:14 06/21/21 15:14 Oxygen Flow Rate (L/min) 2 Oxygen Delivery Method Room Air Weight: 113 lb 15.664 oz Body Mass Index (BMI) 24.6 Intake & Output: Intake and Output for Last 24 Hours 06/20/21 06/21/21 06/22/21 03:59 03:59 03:59 Intake Total 2095 / 2095 2270 / 2270 1250 / 1250 Output Total 350 / 350 650 / 650 450 / 450 Balance 1745 / 1745 1620 / 1620 800 / 800 Lab / Micro Data Result Diagrams: 06/20/21 06:40 06/21/21 06:25 Labs: Laboratory Results - last 24 hr 06/20/21 16:50: POC Glucose 266 H 06/20/21 20:55: POC Glucose 265 H 06/21/21 02:24: POC Glucose 94 06/21/21 06:25: Sodium 138, Potassium 3.1 L, Chloride 107, Carbon Dioxide 23.0, Anion Gap 8, BUN 23 H, Creatinine 1.50 H, Estim Creat Clear Calc 21.97, Est GFR (MDRD) Af Amer 42 L, Est GFR (MDRD) Non-Af 35 L, BUN/Creatinine Ratio 15.3, Glucose 110 H, Calcium 8.7 06/21/21 07:04: POC Glucose 104 06/21/21 11:26: POC Glucose 165 H Micro: Microbiology 06/18/21 15:37 Nasal Secretion SARS-CoV-2 Antigen (Rapid) - Final SARS-CoV-2 (COVID 19) Physical Exam Const alert, oriented x3 and no apparent distress General Appearance: cooperative HEENT normocephalic and moist oral mucous membranes Eyes PERRL, EOMs intact bilaterally and conjunctivae normal Neck supple and no JVD Resp normal respiratory effort, no retractions and no use of accessory muscles Auscultation: diminished lung sounds; Negative for crackles, rales, rhonchi or wheezes Cardio regular rate, regular rhythm, S1 normal heart sound, S2 normal heart sound and no murmurs GI soft to palpation, non-tender and non-distended; Negative for hepatosplenomegaly Extremity no clubbing, cyanosis or edema Skin no rashes or lesions noted Neuro no focal motor deficits and no sensory deficits noted Psych affect normal Appearance: appropriate Assessment & Plan Assessment/Plan (1) Acute kidney injury: (2) COVID: (3) Hypoglycemia associated with diabetes: (4) Acute dehydration: (5) Debility: PLAN: #Debility due to COVID and hypoglycemia * admit to med surg * PT/OT consult. Fall precautions. 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 Accuchecks ACHS * encourage oral diet, will continue with D5 fluids in the meantime #CHASE: * Cr is 2.53. No baseline known. * Likely pre-renal due to decreased intake.hydrate gently with IVF and trend Cr. * Creatinine is improving, will continue to monitor Disposition: Based on PT/OT evaluations as well as nursing reports, will anticipate discharge to SNF for rehab DVT: Eliquis Charges/Coding Visit Charges Inpatient E&M: 44107 Subs Hosp L2
[2021-06-21 16:10] VITALS: O2SAT 96
[2021-06-21 16:17] LABS: Phosphorus 1.6 mg/dL (2.5-4.9)
[2021-06-21 18:11] LABS: Bedside Glucose 170 mg/dL (70-110)
[2021-06-21 20:02] VITALS: BP 147/85; PULSE 67; RESP 18; TEMP 38.4; O2SAT 95
[2021-06-21 20:30] LABS: Bedside Glucose 177 mg/dL (70-110)
[2021-06-22] VITALS (10 sets, daily range): BP systolic 143–165; BP diastolic 48–61; PULSE 56–77; RESP 16–24; TEMP 36.6–39.1; O2SAT 94–97
[2021-06-22] MEDS: Dext 5%-0.45% NS 1,000 ML 100 ML IV ×2 (00:29→15:53)
[2021-06-22 04:56] LABS: Bedside Glucose 186 mg/dL (70-110)
[2021-06-22] MEDS: Acetaminophen 325 MG Tablet 650 MG PO ×2 (05:59→14:10)
[2021-06-22] MEDS: Menthol/Lanolin/Calamine/Znox 113 GM Tube 1 APPLIC TOPICAL ×3 (05:59→21:20)
[2021-06-22 06:15] LABS: Bedside Glucose 147 mg/dL (70-110)
[2021-06-22 07:32] LABS: Anion Gap 6 (5-15); BUN 19 mg/dL (7-18); BUN/Creat Ratio 14.1 RATIO (10-20); Calcium,Total 8.9 mg/dL (8.5-10.1); Chloride 109 mmol/L (98-107); Creatinine, Serum 1.35 mg/dL (0.55-1.02); EST Glomerular Filtration Rate 40 mL/min (>60); Est Glom Filt Rate - Afr Amer 48 mL/min (>60); Estimated Creatinine Clearance 24.41 ml/min; Glucose 168 mg/dL (74-106); Potassium 3.8 mmol/L (3.5-5.1); Sodium Level 136 mmol/L (136-145)
[2021-06-22 07:49] LABS: Absolute Lymphocyte Count 0.79 X10^3/uL (0.83-4.51); Absolute Neutrophil Count 3.7 X10^3/uL (2.0-7.7); Hematocrit 30.6 % (37-47); Hemoglobin 10.5 g/dL (12.0-15.0); Lymphocyte # 0.79 X10^3/ul (0.83-4.51); Lymphocyte % 16.5 % (19-41); Mean Corp Hgb Conc 34.3 g/dL (32-36); Mean Corpuscular Hgb 30.3 pg (27.0-32.0); Mean Corpuscular Volume 88.4 fL (81-99); Mean Platelet Vol. 10.4 fl (6.2-12.0); Monocyte# 0.26 X10^3/uL; Monocyte% 5.4 % (0-10); NRBC Flagged by Analyzer 0 % (0-5); Neutrophil # 3.72 X10^3/uL (2.7-7.7); Neutrophil % 77.5 % (47-70); Platelet Count 277 K/mm3 (150-450); RBC Distribution Width CV 14.2 % (11.6-14.6); RBC Distribution Width SD 45.4 fl (35.1-43.9); Red Blood Count 3.46 M/mm3 (4.2-5.4); White Blood Count 4.8 K/mm3 (4.4-11.0)
[2021-06-22] MEDS: Allopurinol 100 MG Tablet PO (09:27)
[2021-06-22] MEDS: APIXABAN 5 MG TABLET PO ×2 (09:27→21:20)
[2021-06-22] MEDS: dilTIAZem CD 120 MG Capsule PO (09:27)
[2021-06-22] MEDS: Atorvastatin Calcium 40 MG Tablet PO (09:27)
[2021-06-22] MEDS: cloNIDine HCl 0.2 MG Tablet PO ×2 (09:27→21:20)
[2021-06-22 09:49] LABS: Color, Urine Yellow (Yellow); Glucose, Dipstick Normal (Normal); Ketone-Dipstick Negative (Negative); Leukocyte Esterase-Dipstick 500 /ul (Negative); Mucous, Urine 0 SEEN /hpf (<or=2+); Nitrite-Dipstick Positive (Negative); Occult Blood-Urine 150 /ul (Negative); Protein-Dipstick 100 mg/dl (Negative); Urine Bilirubin Dipstick Negative (Negative); Urine Clarity Cloudy (Clear); Urine Urobilinogen Normal (Normal)
[2021-06-22 09:57] LABS: White Blood Cells >100 SEEN /hpf (0-5)
[2021-06-22 09:58] LABS: Bacteria 4+ /hpf (None Seen); Red Blood Cells-Urine 5-10 SEEN /hpf (0-5); Squamous Epithelial Cells - UA 0-5 SEEN /hpf (5-10)
--- NOTE | 2021-06-22 09:58 | CASEMGMT ---
Social Work Physician rounded w/CM and DELFINA. Pt is not ready for discharge. DELFINA emailed Nadiya at [facility] to let her know. GALILEA Auguste
[2021-06-22] MEDS: Insulin Lispro 100 UNIT/ML INSULN.PEN SC ×3 (11:09→21:20)
[2021-06-22 11:20] LABS: Bedside Glucose 187 mg/dL (70-110)
[2021-06-22] MEDS: Ceftriaxone 1 GM/50 ML BAG IV (14:04)
[2021-06-22 16:00] LABS: Bedside Glucose 213 mg/dL (70-110)
--- NOTE | 2021-06-22 18:07 | PN.HOSP_ITS ---
Subjective Subjective Feels better now that her phosphorus has been replaced. We will recheck in the morning. 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 And she does endorse now some burning with urination Objective Data Objective Data Vital Signs: Vital Signs Temp Pulse Resp BP Pulse Ox 98.6 F 77 16 143/61 H 95 06/22/21 15:52 06/22/21 14:13 06/22/21 14:13 06/22/21 14:13 06/22/21 14:13 Oxygen Flow Rate (L/min) 2 Oxygen Delivery Method Room Air Weight: 113 lb 15.664 oz Body Mass Index (BMI) 24.6 Intake & Output: Intake and Output for Last 24 Hours 06/21/21 06/22/21 06/23/21 03:59 03:59 03:59 Intake Total 2270 / 2270 2190 / 2190 1510.00 / 1510.00 Output Total 650 / 650 600 / 600 750 / 750 Balance 1620 / 1620 1590 / 1590 760.00 / 760.00 Lab / Micro Data Result Diagrams: 06/22/21 06:40 06/22/21 06:40 Labs: Laboratory Results - last 24 hr 06/21/21 17:23: POC Glucose 170 H 06/21/21 20:17: POC Glucose 177 H 06/22/21 03:05: POC Glucose 186 H 06/22/21 05:55: POC Glucose 147 H 06/22/21 06:40: Sodium 136, Potassium 3.8, Chloride 109 H, Carbon Dioxide 21.0, Anion Gap 6, BUN 19 H, Creatinine 1.35 H, Estim Creat Clear Calc 24.41, Est GFR (MDRD) Af Amer 48 L, Est GFR (MDRD) Non-Af 40 L, BUN/Creatinine Ratio 14.1, Glucose 168 H, Calcium 8.9 06/22/21 06:40: WBC 4.8, RBC 3.46 L, Hgb 10.5 L, Hct 30.6 L, MCV 88.4, MCH 30.3, MCHC 34.3, RDW Std Deviation 45.4 H, RDW Coeff of Bin 14.2, Plt Count 277, MPV 10.4, Immature Gran % (Auto) 0.600, Neut % (Auto) 77.5 H, Lymph % (Auto) 16.5 L, Gem % (Auto) 5.4, Eos % (Auto) 0.0, Baso % (Auto) 0.0, Absolute Neuts (auto) 3.7, Absolute Lymphs (auto) 0.79 L, Nucleated RBC % 0 06/22/21 07:36: Urine Color Yellow, Urine Clarity Cloudy, Urine pH 6.0, Ur Specific [place] 1.010, Urine Protein 100 H, Urine Glucose (UA) Normal, Urine Ketones Negative, Urine Occult Blood 150 H, Urine Nitrite Positive H, Urine Bilirubin Negative, Urine Urobilinogen Normal, Ur Leukocyte Esterase 500 H, Urine RBC 5-10 SEEN, Urine WBC >100 SEEN, Ur Squamous Epith Cells 0-5 SEEN, Urine Bacteria 4+, Urine Mucus 0 SEEN 06/22/21 11:04: POC Glucose 187 H 06/22/21 15:51: POC Glucose 213 H Micro: Microbiology 06/18/21 15:37 Nasal Secretion SARS-CoV-2 Antigen (Rapid) - Final SARS-CoV-2 (COVID 19) Physical Exam Narrative Const alert, oriented x3 and no apparent distress General Appearance: cooperative HEENT normocephalic and moist oral mucous membranes Eyes PERRL, EOMs intact bilaterally and conjunctivae normal Neck supple and no JVD Resp normal respiratory effort, no retractions and no use of accessory muscles Auscultation: diminished lung sounds; Negative for crackles, rales, rhonchi or wheezes Cardio regular rate, regular rhythm, S1 normal heart sound, S2 normal heart sound and n o murmurs GI soft to palpation, non-tender and non-distended; Negative for hepatosplenomegaly Extremity no clubbing, cyanosis or edema Skin no rashes or lesions noted Neuro no focal motor deficits and no sensory deficits noted Psych affect normal Appearance: appropriate Assessment & Plan Assessment/Plan (1) Acute kidney injury: (2) COVID: (3) Hypoglycemia associated with diabetes: (4) Acute dehydration: (5) Debility: PLAN: #Debility due to COVID and hypoglycemia/UTI * admit to med surg * PT/OT consult. Fall precautions. 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 Blood cultures are also pending #Hypoglycemia/DM 2 * likely due to decreased intake and taking her diabetes meds * hold oral diabetes meds * ISS. Accuchecks ACHS * encourage oral diet, will continue with D5 fluids in the meantime #CHASE: * Cr is 2.53. No baseline known. * Likely pre-renal due to decreased intake.hydrate gently with IVF and trend Cr. * Creatinine is improving, will continue to monitor Disposition: Based on PT/OT evaluations as well as nursing reports, will anticipate discharge to SNF for rehab DVT: Eliquis Charges/Coding Visit Charges Inpatient E&M: 80135 Subs Hosp L2
[2021-06-22] MEDS: 0.9% Saline Lock 10 ML Syringe IV (21:21)
[2021-06-22 21:45] LABS: Bedside Glucose 199 mg/dL (70-110)
[2021-06-22] MEDS: Nystatin Powder 15gm Bottle 1 APPLIC TOPICAL (23:59)
[2021-06-23] VITALS (11 sets, daily range): BP systolic 110–173; BP diastolic 43–68; PULSE 56–70; RESP 18–20; TEMP 36.9–37.7; O2SAT 92–98
[2021-06-23] MEDS: Dext 5%-0.45% NS 1,000 ML 100 ML IV ×2 (02:11→16:52)
[2021-06-23] MEDS: Menthol/Lanolin/Calamine/Znox 113 GM Tube 1 APPLIC TOPICAL ×3 (04:38→21:52)
[2021-06-23 06:40] LABS: Bedside Glucose 154 mg/dL (70-110)
[2021-06-23] MEDS: Ondansetron 4 MG/2 ML Vial IV (06:46)
[2021-06-23] MEDS: 0.9% Saline Lock 10 ML Syringe IV (06:46)
[2021-06-23] MEDS: Atorvastatin Calcium 40 MG Tablet PO (08:50)
[2021-06-23] MEDS: Allopurinol 100 MG Tablet PO (08:50)
[2021-06-23] MEDS: Ceftriaxone 1 GM/50 ML BAG IV (08:51)
[2021-06-23] MEDS: APIXABAN 5 MG TABLET PO ×2 (08:51→21:53)
[2021-06-23] MEDS: dilTIAZem CD 120 MG Capsule PO (08:51)
[2021-06-23] MEDS: cloNIDine HCl 0.2 MG Tablet PO ×2 (08:56→21:52)
[2021-06-23] MEDS: Nystatin Powder 15gm Bottle 1 APPLIC TOPICAL ×2 (08:57→21:53)
[2021-06-23 08:59] LABS: Absolute Neutrophil Count 3.2 X10^3/uL (2.0-7.7); Basophil# 0.01 X10^3/uL; Basophil% 0.2 % (0-1); Eosinophil# 0.05 X10^3/uL; Eosinophils% 1.1 % (0-5); Hemoglobin 9.5 g/dL (12.0-15.0); Lymphocyte % 23.6 % (19-41); Mean Corp Hgb Conc 32.8 g/dL (32-36); Mean Corpuscular Hgb 30.2 pg (27.0-32.0); Mean Corpuscular Volume 92.1 fL (81-99); Mean Platelet Vol. 9.6 fl (6.2-12.0); Monocyte% 6.4 % (0-10); NRBC Flagged by Analyzer 0 % (0-5); Neutrophil # 3.15 X10^3/uL (2.7-7.7); Neutrophil % 67.6 % (47-70); POSITIVE MORPHOLOGY YES; Platelet Count 278 K/mm3 (150-450); RBC Distribution Width CV 14.3 % (11.6-14.6); RBC Distribution Width SD 48.6 fl (35.1-43.9); Red Blood Count 3.15 M/mm3 (4.2-5.4); White Blood Count 4.7 K/mm3 (4.4-11.0)
[2021-06-23 09:01] LABS: Differential Indicated SCAN CRITERIA MET
[2021-06-23 09:24] LABS: Anion Gap 8 (5-15); BUN 15 mg/dL (7-18); Calcium,Total 8.1 mg/dL (8.5-10.1); Chloride 110 mmol/L (98-107); Creatinine, Serum 1.25 mg/dL (0.55-1.02); EST Glomerular Filtration Rate 43 mL/min (>60); Est Glom Filt Rate - Afr Amer 52 mL/min (>60); Estimated Creatinine Clearance 26.37 ml/min; Glucose 175 mg/dL (74-106); Magnesium 1.1 mg/dL (1.6-2.6); Phosphorus 1.4 mg/dL (2.5-4.9); Potassium 3.2 mmol/L (3.5-5.1); Sodium Level 139 mmol/L (136-145)
[2021-06-23] MEDS: Magnesium Sulfate 4gm/100mL 4 GM/100 ML IV.SOLN. IV (11:24)
[2021-06-23] MEDS: Insulin Lispro 100 UNIT/ML INSULN.PEN SC ×2 (11:25→21:51)
[2021-06-23 11:35] LABS: Bedside Glucose 218 mg/dL (70-110)
--- NOTE | 2021-06-23 11:40 | CASEMGMT ---
Addendum entered by Lubna Sorensen 06/23/21 11:43: SW did also fax updates to [facility]. GALILEA Auguste Original Note: Social Work SW spoke w/physician, pt needs some IVs today and they will take about six hours. SW called [facility], they are not able to take patients after 5pm, so would like for pt to come tomorrow. SW let physician know. SW emailed Nadiya at [facility] to confirm plan for discharge tomorrow, also did let her know that the squad had called [facility] due to pt's home conditions. Green sheet will be placed on chart in anticipation of discharge to [facility] tomorrow. SW did also leave daughter a message to let her know the anticipated plan. Plan: [facility], convalescent stay, skilled level of care. GALILEA Auguste
--- NOTE | 2021-06-23 13:10 | PN.HOSP_ITS ---
Subjective Subjective Feels washed out and fatigued today but breathing okay. This is likely related to her significant hypomagnesemia and hypophosphatemia as well as her hypokalemia Objective Data Objective Data Vital Signs: Vital Signs Temp Pulse Resp BP Pulse Ox 99.1 F 56 L 20 H 135/45 H 94 06/23/21 11:28 06/23/21 11:28 06/23/21 11:28 06/23/21 11:28 06/23/21 11:28 Oxygen Flow Rate (L/min) 2 Oxygen Delivery Method Room Air Weight: 113 lb 15.664 oz Body Mass Index (BMI) 24.6 Intake & Output: Intake and Output for Last 24 Hours 06/22/21 06/23/21 06/24/21 03:59 03:59 03:59 Intake Total 2190 / 2190 2570.00 / 2630.00 1066.67 / 1066.67 Output Total 600 / 600 750 / 750 Balance 1590 / 1590 1820.00 / 1880.00 1066.67 / 1066.67 Lab / Micro Data Result Diagrams: 06/23/21 08:46 06/23/21 08:46 Labs: Laboratory Results - last 24 hr 06/22/21 15:51: POC Glucose 213 H 06/22/21 21:02: POC Glucose 199 H 06/23/21 06:29: POC Glucose 154 H 06/23/21 08:46: WBC 4.7, RBC 3.15 L, Hgb 9.5 L, Hct 29.0 L, MCV 92.1, MCH 30.2, MCHC 32.8, RDW Std Deviation 48.6 H, RDW Coeff of Bin 14.3, Plt Count 278, MPV 9.6, Immature Gran % (Auto) 1.100 H, Neut % (Auto) 67.6, Lymph % (Auto) 23.6, [place] % (Auto) 6.4, Eos % (Auto) 1.1, Baso % (Auto) 0.2, Absolute Neuts (auto) 3.2, Absolute Lymphs (auto) 1.10, Nucleated RBC % 0 06/23/21 08:46: Sodium 139, Potassium 3.2 L, Chloride 110 H, Carbon Dioxide 21.0, Anion Gap 8, BUN 15, Creatinine 1.25 H, Estim Creat Clear Calc 26.37, Est GFR (MDRD) Af Amer 52 L, Est GFR (MDRD) Non-Af 43 L, BUN/Creatinine Ratio 12.0, Glucose 175 H, Calcium 8.1 L, Phosphorus 1.4 L, Magnesium 1.1 L 06/23/21 11:22: POC Glucose 218 H Micro: Microbiology 06/18/21 15:37 Nasal Secretion SARS-CoV-2 Antigen (Rapid) - Final SARS-CoV-2 (COVID 19) Physical Exam Narrative Const alert, oriented x3 and no apparent distress General Appearance: cooperative HEENT normocephalic and moist oral mucous membranes Eyes PERRL, EOMs intact bilaterally and conjunctivae normal Neck supple and no JVD Resp normal respiratory effort, no retractions and no use of accessory muscles Auscultation: diminished lung sounds; Negative for crackles, rales, rhonchi or wheezes Cardio regular rate, regular rhythm, S1 normal heart sound, S2 normal heart sound and no murmurs GI soft to palpation, non-tender and non-distended; Negative for hepatosplenomegaly Extremity no clubbing, cyanosis or edema Skin no rashes or lesions noted Neuro no focal motor deficits and no sensory deficits noted Psych affect normal Appearance: appropriate Assessment & Plan Assessment/Plan (1) Acute kidney injury: (2) COVID: (3) Hypoglycemia associated with diabetes: (4) Acute dehydration: (5) Debility: PLAN: #Debility due to COVID and hypoglycemia/UTI/hypomagnesemia, hypokalemia, hypophosphatemia * admit to med surg * PT/OT consult. Fall precautions. 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 Blood cultures are also pending * Replete electrolytes #Hypoglycemia/DM 2 * likely due to decreased intake and taking her diabetes meds * hold oral diabetes meds * ISS. Accuchecks ACHS * encourage oral diet, will continue with D5 fluids in the meantime #CHASE: * Cr is 2.53. No baseline known. * Likely pre-renal due to decreased intake.hydrate gently with IVF and trend Cr. * Creatinine is improving, will continue to monitor Disposition: Based on PT/OT evaluations as well as nursing reports, will anticipate discharge to SNF for rehab DVT: Eliquis Charges/Coding Visit Charges Inpatient E&M: 53951 Subs Hosp L2
[2021-06-23 16:26] LABS: Bedside Glucose 125 mg/dL (70-110)
[2021-06-23 23:10] LABS: Bedside Glucose 151 mg/dL (70-110)
[2021-06-24] MEDS: Dext 5%-0.45% NS 1,000 ML 100 ML IV ×2 (01:23→11:01)
[2021-06-24 03:00] VITALS: RESP 20
[2021-06-24 05:12] VITALS: BP 161/56; PULSE 62; RESP 20; TEMP 37.3; O2SAT 94
[2021-06-24] MEDS: Menthol/Lanolin/Calamine/Znox 113 GM Tube 1 APPLIC TOPICAL (05:17)
[2021-06-24] MEDS: Insulin Lispro 100 UNIT/ML INSULN.PEN SC ×2 (06:53→11:02)
[2021-06-24 07:49] LABS: Absolute Lymphocyte Count 1.31 X10^3/uL (0.83-4.51); Absolute Neutrophil Count 2.8 X10^3/uL (2.0-7.7); Basophil# 0.01 X10^3/uL; Basophil% 0.2 % (0-1); Eosinophil# 0.13 X10^3/uL; Eosinophils% 2.7 % (0-5); Hematocrit 29.2 % (37-47); Hemoglobin 9.3 g/dL (12.0-15.0); Lymphocyte # 1.31 X10^3/ul (0.83-4.51); Lymphocyte % 27.7 % (19-41); Mean Corp Hgb Conc 31.8 g/dL (32-36); Mean Corpuscular Hgb 29.7 pg (27.0-32.0); Mean Corpuscular Volume 93.3 fL (81-99); Mean Platelet Vol. 9.8 fl (6.2-12.0); Monocyte# 0.44 X10^3/uL; Monocyte% 9.3 % (0-10); NRBC Flagged by Analyzer 0 % (0-5); Neutrophil # 2.79 X10^3/uL (2.7-7.7); Platelet Count 331 K/mm3 (150-450); RBC Distribution Width CV 14.4 % (11.6-14.6); RBC Distribution Width SD 49.1 fl (35.1-43.9); Red Blood Count 3.13 M/mm3 (4.2-5.4); White Blood Count 4.7 K/mm3 (4.4-11.0)
[2021-06-24 08:07] LABS: Anion Gap 6 (5-15); BUN 12 mg/dL (7-18); BUN/Creat Ratio 10.3 RATIO (10-20); Calcium,Total 7.8 mg/dL (8.5-10.1); Chloride 112 mmol/L (98-107); Creatinine, Serum 1.16 mg/dL (0.55-1.02); EST Glomerular Filtration Rate 47 mL/min (>60); Est Glom Filt Rate - Afr Amer 57 mL/min (>60); Estimated Creatinine Clearance 28.41 ml/min; Glucose 174 mg/dL (74-106); Magnesium 2.1 mg/dL (1.6-2.6); Phosphorus 2.3 mg/dL (2.5-4.9); Potassium 3.5 mmol/L (3.5-5.1); Sodium Level 140 mmol/L (136-145)
[2021-06-24 08:25] VITALS: BP 156/55; PULSE 63; RESP 20; TEMP 36.9; O2SAT 95
[2021-06-24] MEDS: Ceftriaxone 1 GM/50 ML BAG IV (08:27)
[2021-06-24] MEDS: APIXABAN 5 MG TABLET PO (08:28)
[2021-06-24] MEDS: dilTIAZem CD 120 MG Capsule PO (08:28)
[2021-06-24] MEDS: Allopurinol 100 MG Tablet PO (08:28)
[2021-06-24] MEDS: cloNIDine HCl 0.2 MG Tablet PO (08:28)
[2021-06-24] MEDS: Atorvastatin Calcium 40 MG Tablet PO (08:29)
[2021-06-24] MEDS: Nystatin Powder 15gm Bottle 1 APPLIC TOPICAL (08:31)
[2021-06-24 09:11] LABS: Bedside Glucose 159 mg/dL (70-110)
[2021-06-24 11:06] VITALS: BP 150/41; PULSE 67; RESP 18; TEMP 37.1; O2SAT 97
--- NOTE | 2021-06-24 12:48 | PCM.TXEXTCAR ---
Diet 06/19/21 11:55 Diet: Regular - General Type of Dietary Supplement:: Glucerna Shake Is pt able to select menu?: No Diet Comments: 4oz w/ meals Routine Orders/Code Status Routine Lab Work: CBC and BMP Therapies Physical Therapy: Eval and Treat Occupational Therapy: Eval and Treat Problem/Diagnosis (1) Acute kidney injury: Status: Acute (2) COVID: Status: Acute (3) Hypoglycemia associated with diabetes: Status: Acute (4) Acute dehydration: Status: Acute (5) Debility: Status: Acute Allergies/Procedures Done in Hospital Allergies No Known Allergies Allergy (Verified 06/18/21 14:41) Procedures: None Type of Care/Length of Stay Estimated LOS: Convalescent Care Less Than 30 days Type of Care Needed: Skilled Rehab Potential: Fair Prognosis: Fair Additional Orders/Day of Discharge Day of Discharge: 06/24/21 Dietary and Speech Recommendations Dietitian Recommendations/Changes: regular diet, glucerna 4oz w/ meals d/t risk for malnutrition, hypoglycemia. Discharge Plan Admission Admit Date/Time: 06/18/21 22:52 Attending Provider: Eric Diaz Primary Care Provider: Sravan Rossi Instructions Additional Instructions / Restrictions: Please call to obtain sensitivities as the urine culture is still not final Discharge Orders/Prescriptions Prescriptions: New cefdinir 300 mg capsule 300 mg PO BID 3 Days Qty: 6 RF: 0 Continued atorvastatin 40 mg tablet 40 mg PO QHS RF: 0 allopurinol 100 mg tablet 100 mg PO DAILY RF: 0 clonidine HCl 0.2 mg tablet 0.2 mg PO BID RF: 0 glimepiride 4 mg tablet 4 mg PO DAILY RF: 0 Eliquis 5 mg Tablet 5 mg PO BID RF: 0 diltiazem HCl 180 mg capsule,extended release 24hr 180 mg PO DAILY RF: 0 chlorthalidone 25 mg tablet 25 mg PO DAILY RF: 0 Referrals / Follow Up: Sravan Rossi MD [Primary Care Provider] - Within 1 Month Disposition Disposition (needs filled in before D/C Order can be placed): [facility]
--- NOTE | 2021-06-24 13:22 | PCM.DC.SUM ---
Providers Date of Admission: 06/18/21 Primary Care Physician: Dr. Sravan Rossi MD Reason For Visit: DEBILITY DUE TO COVID AND HYPOGLYCEMIA Diagnosis Discharge Diagnosis (1) Acute kidney injury: Status: Acute Code(s): N17.9 - Acute kidney failure, unspecified (2) COVID: Status: Acute Code(s): U07.1 - COVID-19 (3) Hypoglycemia associated with diabetes: Status: Acute Code(s): E11.649 - Type 2 diabetes mellitus with hypoglycemia without coma (4) Acute dehydration: Status: Acute Code(s): E86.0 - Dehydration (5) Debility: Status: Acute Code(s): R53.81 - Other malaise Medications at Discharge Home Medications Eliquis 5 mg PO BID 06/18/21 allopurinol 100 mg PO DAILY 06/18/21 atorvastatin 40 mg PO QHS 06/18/21 clonidine HCl 0.2 mg PO BID 06/18/21 glimepiride 4 mg PO DAILY 06/18/21 chlorthalidone 25 mg PO DAILY 06/23/21 diltiazem HCl 180 mg PO DAILY 06/23/21 cefdinir 300 mg PO BID 3 Days #6 cap 06/24/21 Hospital Course Operations None Procedures None Summary of Care Provided Minutes Spent on Discharge: 35 Hospital Course: Per HPI: HAL EVERETT, is a 85 F with a PMh as outlined who presented via the ED on 06/18/2021 with a complaint of weakness and lethargy. This had been going on for a couple of days prior to admission, and she admitted to not eating or drinking much. She denied any fever, chills, nausea, cough, chest pain, shortness of breath or any other symptoms. She said she hadnt been able to get out of her chair for the last couple of days. She called the EMS and she was found to be hypoglycemic with blood sugar of 45. She was on glimepiride at home which she has not been taking at home as her blood sugars have been running low at home. Hypoglycemia resolved with administration of a meal in the ED. During her workup, she was found to be covid positive. Vitals were BP of 168/70, AR of 70, RR of 18 and oxygen sats of 96% on room air. CBC was unremarkable, and BMp showed sodium of 135, and Cr of 2.35, with no known baseline. Glucose had come up to 215 after she had a meal in the ED. Urinalysis was negative for bacteria or any evidence of UTI. COVID antigen test was negative; CXR showed evidence of COPD and sternotomy but no acute disease. Patient was very weak in the ED and couldnt even stand without assistance. She therefore couldnt be discharged home, and was admitted to be managed for lethargy and weakness and asymptomatic covid pneumonia as well as hypoglycemia. Hospital Course: #Debility due to COVID and hypoglycemia/UTI/hypomagnesemia, hypokalemia, hypophosphatemia admit to med surg PT/OT consult. Fall precautions. CT of the brain showed left occipital encephalomalacia She is back to room air therefore will not start her on any treatments especially since Decadron will make her blood sugars more elevated and she I believe is out of the window for remdesivir Will obtain a sputum culture UA today is consistent with UTI, will start her on Rocephin and obtain a urine culture. Blood cultures are also pending Replete electrolytes 06/24/2021: Feels much better today, still a little apathetic and tired however her magnesium is normal and her phosphorus is being replaced again today as is her potassium. 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 I do recommend that you call the hospital for updated sensitivities in the next 24 to 48 hours and adjust antibiotics accordingly. Discussed with her the plan for discharge today and she expressed understanding of the risk benefits of going to SNF and would like to go to start her rehab. #Hypoglycemia/DM 2 likely due to decreased intake and taking her diabetes meds hold oral diabetes meds ISS. Accuchecks ACHS encourage oral diet, will continue with D5 fluids in the meantime 06/24/2021: Blood sugars have been stable on the D5. Hopefully now that she feels better and she is was getting rehab can start eating a little bit better. Do recommend monitoring her blood sugars at the SNF as well as [facility] since bribe will be restarted. #CHASE: Resolved Physical Exam Narrative Const alert, oriented x3 and no apparent distress General Appearance: cooperative HEENT normocephalic and moist oral mucous membranes Eyes PERRL, EOMs intact bilaterally and conjunctivae normal Neck supple and no JVD Resp normal respiratory effort, no retractions and no use of accessory muscles Auscultation: diminished lung sounds; Negative for crackles, rales, rhonchi or wheezes Cardio regular rate, regular rhythm, S1 normal heart sound, S2 normal heart sound and no murmurs GI soft to palpation, non-tender and non-distended; Negative for hepatosplenomegaly Extremity no clubbing, cyanosis or edema Skin no rashes or lesions noted Neuro no focal motor deficits and no sensory deficits noted Psych affect normal Appearance: appropriate Weight / BMI Weight Weight: 113 lb 15.664 oz Body Mass Index (BMI) 24.6 ABG / Lab / Microbiology Data Result Diagrams: 06/24/21 07:23 06/24/21 07:23 Laboratory: Laboratory Results - last 24 hr 06/23/21 15:57: POC Glucose 125 H 06/23/21 21:50: POC Glucose 151 H 06/24/21 06:52: POC Glucose 159 H 06/24/21 07:23: WBC 4.7, RBC 3.13 L, Hgb 9.3 L, Hct 29.2 L, MCV 93.3, MCH 29.7, MCHC 31.8 L, RDW Std Deviation 49.1 H, RDW Coeff of Bin 14.4, Plt Count 331, MPV 9.8, Immature Gran % (Auto) 1.100 H, Neut % (Auto) 59.0, Lymph % (Auto) 27.7, Traill % (Auto) 9.3, Eos % (Auto) 2.7, Baso % (Auto) 0.2, Absolute Neuts (auto) 2.8, Absolute Lymphs (auto) 1.31, Nucleated RBC % 0 06/24/21 07:23: Sodium 140, Potassium 3.5, Chloride 112 H, Carbon Dioxide 22.0, Anion Gap 6, BUN 12, Creatinine 1.16 H, Estim Creat Clear Calc 28.41, Est GFR (MDRD) Af Amer 57 L, Est GFR (MDRD) Non-Af 47 L, BUN/Creatinine Ratio 10.3, Glucose 174 H, Calcium 7.8 L, Phosphorus 2.3 L, Magnesium 2.1 Microbiology: Microbiology 06/22/21 08:50 Blood Culture (Wb) - Right Hand Blood Culture - Preliminary No growth in 48 hours. 06/22/21 08:40 Blood Culture (Wb) - Left Hand Blood Culture - Preliminary No growth in 48 hours. 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 06/18/21 15:37 Nasal Secretion SARS-CoV-2 Antigen (Rapid) - Final SARS-CoV-2 (COVID 19) Meaningful Use Info Meaningful Use Diagnoses (Choose all that apply): None applicable Discharge Plan Admission Admit Date/Time: 06/18/21 22:52 Attending Provider: Eric Diaz Primary Care Provider: Sravan Rossi Instructions Additional Instructions / Restrictions: Please call to obtain sensitivities as the urine culture is still not final Discharge Orders/Prescriptions Prescriptions: New cefdinir 300 mg capsule 300 mg PO BID 3 Days Qty: 6 RF: 0 Continued atorvastatin 40 mg tablet 40 mg PO QHS RF: 0 allopurinol 100 mg tablet 100 mg PO DAILY RF: 0 clonidine HCl 0.2 mg tablet 0.2 mg PO BID RF: 0 glimepiride 4 mg tablet 4 mg PO DAILY RF: 0 Eliquis 5 mg Tablet 5 mg PO BID RF: 0 diltiazem HCl 180 mg capsule,extended release 24hr 180 mg PO DAILY RF: 0 chlorthalidone 25 mg tablet 25 mg PO DAILY RF: 0 Referrals / Follow Up: Sravan Rossi MD [Primary Care Provider] - Within 1 Month Disposition Disposition (needs filled in before D/C Order can be placed): Shelter Facility Charges/Coding Visit Charges Inpatient E&M: 16753 Disch Hosp
[2021-06-24 14:31] LABS: Bedside Glucose 183 mg/dL (70-110)
--- NOTE | 2021-06-24 18:37 | CM.ED ---
DELFINA Note At 2:15pm this automobile service writer was updated by [place] attorney Olivia that patient was being discharged to [facility] with transport set for 3pm. DELFINA attempted repeatedly to access 7000 form for patient however, message from website said that there was an error. DELFINA completed paper 7000 form and requested Olivia have MD sign the form. DELFINA faxed the form to [facility] for their record. Copy of form made and will be put on transition social worker's desk. ERA left for assigned transition social worker. Yuko JENKINS
--- NOTE | 2021-06-26 12:08 | CASEMGMT ---
SW completed the PAS/RR for this pt and faxed it, along w/results, to [facility], to help avoid any confusion or issue for them. GALILEA Auguste
== END 2021-06-24 16:37 | DRG 177 ==
LOC: ED 18:18 → MS3 18:59
PROVIDERS: Admitting Provider Student in an Organized Health Care Education/Training Program; Emergency Provider Emergency Medicine; PCP Family Medicine; Visit Provider Family Medicine
DX: U07.1 COVID-19 (principal); J12.82 Pneumonia due to coronavirus disease 2019; N17.9 Acute kidney failure, unspecified; J44.0 Chronic obstructive pulmonary disease with (acute) lower respiratory infection; N39.0 Urinary tract infection, site not specified; E11.649 Type 2 diabetes mellitus with hypoglycemia without coma; E83.39 Other disorders of phosphorus metabolism; E83.42 Hypomagnesemia; E87.6 Hypokalemia; G93.89 Other specified disorders of brain; E86.0 Dehydration; R53.81 Other malaise
CPT/HCPCS: 36415; 70450; 71045; 80048; 80053; 81001; 82962; 83735; 84100; 84484; 85025; 87040; 87077; 87086; 87088; 87186; 87426; 87493; 93005; 94762; 97110; 97162; 97166; 97530; 97535; 99251; 99285; J7030; J7040; J7050; A4216; G0463; J2405; J7799

== ENCOUNTER → 2023-02-27 | Outpatient (CLI) | payer MEDICARE, OTHER, SELFPAY ==
--- NOTE | 2023-02-27 15:06 | ECHOD_ITS ---
Reason For Study: HTN Procedure This was a 2D Doppler, Color Flow transthoracic echocardiogram. Exam performed in department. Left Ventricle Normal LV size. Left ventricular systolic function is normal. The estimated ejection fraction is 60 %. No regional wall motion abnormalities noted. Right Ventricle Normal RV size. Normal systolic function. Atria Normal left atrium. Normal right atrium. Mitral Valve Normal mitral valve. Tricuspid Valve Normal tricuspid valve. Mild (1+) tricuspid valve insufficiency. Pulmonary artery systolic pressure is 42 mmHg. Aortic Valve Trisinus/trileaflet aortic valve. Pulmonic Valve Normal pulmonic valve. Mild (1+) pulmonic valve insufficiency. Great Vessels Normal aortic root. Pericardium/Pleural No pericardial effusion. MMode/2D Measurements & Calculations Ao root diam: 3.1 cm LAV(MOD-sp4): 50.7 ml LA A4 area: 18.4 cm2 LA dimension(2D): 3.4 cm TAPSE: 1.0 cm RA A4 area: 12.7 cm2 Doppler Measurements & Calculations MV E max davy: 92.3 cm/sec Ao V2 max: 105.6 cm/sec LV V1 max: 84.3 cm/sec Ao max P.5 mmHg LV V1 max P.9 mmHg Ao V2 mean: 66.1 cm/sec LV V1 mean P.2 mmHg Ao mean P.0 mmHg LV V1 mean: 53.0 cm/sec Ao V2 VTI: 17.3 cm LV V1 VTI: 13.1 cm AV (velocity ratio): 0.76 PA V2 max: 95.9 cm/sec PI dec slope: 144.5 cm/sec2 TR max davy: 306.6 cm/sec PA V2 mean: 57.2 cm/sec TR max P.6 mmHg ECHO/Echo Complete Interpretation Summary Normal LV size. Left ventricular systolic function is normal. The estimated ejection fraction is 60 %. Pulmonary artery systolic pressure is 42 mmHg. Mild (1+) tricuspid valve insufficiency. Ordering Physician: Sravan Rossi Referring Physician: Sravan Rossi Performed By: Merlene Paulino RCS
== END | disposition home or self-care (01) ==
LOC: CVS 15:05
PROVIDERS: PCP Family Medicine; Referring Provider Family Medicine; Visit Provider Family Medicine
DX: I13.0 Hypertensive heart and chronic kidney disease with heart failure and stage 1 through stage 4 chronic kidney disease, or unspecified chronic kidney disease (principal); I50.9 Heart failure, unspecified; N18.30 Chronic kidney disease, stage 3 unspecified
CPT/HCPCS: 93306

== ENCOUNTER 2023-10-01 08:07 | Emergency (ER) | payer MEDICARE, OTHER, SELFPAY ==
[2023-10-01 08:09] VITALS: BP 160/81; PULSE 91; RESP 16; TEMP 36.7; O2SAT 96; BMI 27.1
--- NOTE | 2023-10-01 08:35 | RAD_ITS ---
STUDY: X-RAY - RIGHT WRIST REASON FOR EXAM: Female, 87 years old. Pain. No known injury. TECHNIQUE: 3 view(s) of the wrist were obtained. COMPARISON: None. FINDINGS: Normal visualized distal radius and ulna. There is degenerative arthrosis of the radiocarpal articulation. Normal distal radioulnar articulation. Normal carpal bones. Normal carpal articulations. There is degenerative arthrosis of the carpometacarpal articulation of the thumb. Normal second through fifth carpometacarpal articulations. Normal visualized metacarpal bones. Soft tissue swelling. Calcification of the triangular fibrocartilage. RAD/Wrist min 3 Views IMPRESSION: Degenerative changes. Soft tissue swelling. Electronically Signed: Christiano Moseley MD at 9:03 EDT ,
--- NOTE | 2023-10-01 08:35 | RAD_ITS ---
STUDY: X-RAY - RIGHT ELBOW REASON FOR EXAM: Female, 87 years old. Elbow pain. No known injury. TECHNIQUE: 3 view(s) of the elbow. COMPARISON: None. FINDINGS: Normal visualized humerus, radius and ulna. There is degenerative arthrosis of the radiocapitellar and ulnotrochlear articulations. The soft tissue structures are unremarkable. RAD/Elbow min 3 Views IMPRESSION: Degenerative arthritis. Electronically Signed: Christiano Moseley MD at 9:00 EDT ,
--- NOTE | 2023-10-01 08:48 | EX.ED.UPPERE ---
HPI History of Present Illness Chief Complaint: Upper Extremity Injury Informant: patient Narrative Narrative: 79-year-old female presenting to the emergency room with right wrist and elbow pain. Patient has history alternans. She states it started in her elbow about 2 days ago. Later she tells me it started in her wrist and once that became swollen her elbow started hurting. She notes a history of gout but has had that in her knee and takes allopurinol. She tells me she does not take a blood thinner but then tells me she takes Coumadin in the chart states that she takes Eliquis. She denies any known trauma. She notes swelling of her fingers and her wrist. She notes pain with supination and pronation particularly at the elbow joint as well as the wrist. No reported fevers. [facility] Medical History Afib COPD (chronic obstructive pulmonary disease) Diabetes Hypertension Sleep apnea Home Medications allopurinol 100 mg tablet 100 mg PO DAILY gout 06/18/21 [History Last Taken 06/16/21] apixaban 5 mg tablet (Eliquis) 5 mg PO BID blood clots 06/18/21 [History Last Taken 06/16/21] atorvastatin 40 mg tablet 40 mg PO QHS cholesterol 06/18/21 [History Last Taken 06/16/21] clonidine HCl 0.2 mg tablet 0.2 mg PO BID HTN 06/18/21 [History Last Taken 06/16/21] glimepiride 4 mg tablet 4 mg PO DAILY diabetes 06/18/21 [History Last Taken 06/16/21] chlorthalidone 25 mg tablet 25 mg PO DAILY blood pressure 06/23/21 [History Last Taken Unknown] diltiazem HCl 180 mg capsule,extended release 24 hr 180 mg PO DAILY blood pressure 06/23/21 [History Last Taken Unknown] cefdinir 300 mg capsule 300 mg PO BID 3 days #6 caps 06/24/21 [Rx Last Taken Unknown] amoxicillin 875 mg-potassium clavulanate 125 mg tablet 875 mg (0.875 x 875-125 mg) PO Q12H #14 TABLETS 10/01/23 [Rx Last Taken Unknown] prednisone 20 mg tablet 40 mg (2 x 20 mg) PO DAILY 5 days #10 tabs 10/01/23 [Rx Last Taken Unknown] Allergy/AdvReac Type Severity Reaction Status Date / Time No Known Allergies Allergy Verified 10/01/23 08:09 Surgical History S/P cholecystectomy S/P triple vessel bypass Social History Smoking Status: Never smoker ROS ROS ED Constitutional Constitutional ED: Denies chills, fever(s) or weight loss Eyes Eyes: Denies change in vision or diplopia ENT ENT ED: Denies ear pain, rhinorrhea or sore throat Cardiovascular Cardiovascular: Denies chest pain, orthopnea, palpitations or racing heartbeat Respiratory/Chest Respiratory/Chest: Denies cough, dyspnea or orthopnea Gastrointestinal Gastrointestinal: Denies abdominal pain, diarrhea, nausea or vomiting Genitourinary Genitourinary ED: Denies dysuria, hematuria or urinary frequency Musculoskeletal Musculoskeletal: Reports other Details: Right wrist right elbow pain right hand and wrist swelling ; Denies arthralgias or myalgias Integumentary Denies abscess or rash Neurologic Neurologic: Denies headache(s) or weakness Psychiatric Psychiatric: Denies anxiety, depression, suicidal ideation or suicidal thoughts Endocrine Endocrinology: Denies polydipsia, polyphagia or polyuria Allergic/Immunologic Allergic/Immunologic ED: Denies mouth swelling, tongue swelling or urticaria EXAM Physical Exam Const Vital Signs: 10/01/23 08:09 Temperature 98.0 F Temperature Source Oral Pulse Rate 91 Respiratory Rate 16 Blood Pressure 160/81 H Blood Pressure Mean 107 Pulse Ox 96 Oxygen Delivery Method Room Air Positive well nourished and well developed General Appearance ED: well developed HEENT Reports normocephalic, head/scalp atraumatic and moist mucous membranes Eyes PERRL and EOMs intact bilaterally Neck full ROM, no lymphadenopathy, supple and no JVD Resp normal respiratory effort and clear to auscultation bilaterally Cardio regular rate, regular rhythm and no murmurs GI normal to inspection, nondistended, normoactive bowel sounds and non-tender Palpation: soft Back/Spine no CVA tenderness and normal ROM Extremity Extremity Narrative: Patient has pain with pronation supination. There is no obvious deformity of the right elbow or wrist. There is swelling of the right wrist and hand. Normal capillary refill less than 2 seconds. Neurovascular intact. There is some mild increased warmth of the wrist and hand. There is no significant erythema. Neuro oriented x3 and CN's II-XII intact bilaterally Sensorium / Orientation: alert Motor Exam: strength 5/5 throughout Psych mental status grossly normal Mood & Affect: Negative for depressed or tearful Skin no rashes or lesions noted and no wounds MDM MDM MDM Narrative Medical decision making narrative: My independent interpretation of the elbow x-ray is degenerative changes no acute fracture. Plan obtain interpretation of the wrist x-rays with soft tissue swelling degenerative changes no acute fracture. Patient's white count [facility] returns elevated 17.7 with 82.2 neutrophils 10.2 lymphocytes. Hemoglobin at 13.7 and platelet count of 311. INR 1.1 and PTT of 26.2. I asked the patient and she states that now she does not believe she is on Coumadin but she might be on a different blood thinner but she is not sure. Creatinine 1.38 with a BUN of 27. Glucose of 133 calcium 10.4. Difficult to say what is causing the patient's symptoms. The skin is not really erythematous though there is a slight amount of increased warmth of the dorsum of the wrist. This could be gout. Given the elevated white count could be something infectious. I did obtain a duplex ultrasound of the extremity and there is no DVT noted. Given her creatinine 1.38 willing to recommend that we try some prednisone can also place her on some Keflex. Will place her in a wrist splint. She notes that her pain tends to be in the wrist and the elbow however she is only holding the wrist and seems to suggest that the pain radiates to the elbow. Patient notes understanding of the need for follow-up and return instructions. She understands the diagnostic dilemma that we are facing given the exam and history is not necessarily consistent with anyone diagnoses. Clinical Impression(s) from Imaging Studies Elbow X-Ray 10/01/23 08:35 IMPRESSION: Degenerative arthritis. Electronically Signed: Christiano Moseley MD at 9:00 EDT , Wrist X-Ray 10/01/23 08:35 IMPRESSION: Degenerative changes. Soft tissue swelling. Electronically Signed: Christiano Moseley MD at 9:03 EDT , Laboratory Last Values WBC 17.7 K/mm3 (4.4-11.0) H 10/01/23 09:05 RBC 4.54 M/mm3 (4.2-5.4) 10/01/23 09:05 Hgb 13.7 g/dL (12.0-15.0) 10/01/23 09:05 Hct 42.2 % (37-47) 10/01/23 09:05 MCV 93.0 fL (81-99) 10/01/23 09:05 MCH 30.2 pg (27.0-32.0) 10/01/23 09:05 MCHC 32.5 g/dL (32-36) 10/01/23 09:05 RDW Std Deviation 47.5 fl (35.1-43.9) H 10/01/23 09:05 RDW Coeff of Bin 14.1 % (11.6-14.6) 10/01/23 09:05 Plt Count 311 K/mm3 (150-450) 10/01/23 09:05 MPV 9.9 fl (6.2-12.0) 10/01/23 09:05 Immature Gran % (Auto) 0.500 % (0.0-0.9) 10/01/23 09:05 Neut % (Auto) 82.2 % (47-70) H 10/01/23 09:05 Lymph % (Auto) 10.2 % (19-41) L 10/01/23 09:05 Gilchrist % (Auto) 6.7 % (0-10) 10/01/23 09:05 Eos % (Auto) 0.2 % (0-5) 10/01/23 09:05 Baso % (Auto) 0.2 % (0-1) 10/01/23 09:05 Absolute Neuts (auto) 14.5 X10^3/uL (2.0-7.7) H 10/01/23 09:05 Absolute Lymphs (auto) 1.81 X10^3/uL (0.83-4.51) 10/01/23 09:05 Nucleated RBC % 0 % (0-5) 10/01/23 09:05 PT 14.5 SECONDS (11.7-14.9) 10/01/23 09:05 INR 1.1 10/01/23 09:05 APTT 26.2 Seconds (24.1-36.2) 10/01/23 09:05 Sodium 135 mmol/L (136-145) L 10/01/23 09:05 Potassium 4.3 mmol/L (3.5-5.1) 10/01/23 09:05 Chloride 104 mmol/L (98-107) 10/01/23 09:05 Carbon Dioxide 27.0 mmol/L (21.0-32.0) 10/01/23 09:05 Anion Gap 4 (5-15) L 10/01/23 09:05 BUN 27 mg/dL (7-18) H 10/01/23 09:05 Creatinine 1.38 mg/dL (0.55-1.02) H 10/01/23 09:05 Estim Creat Clear Calc 22.29 ml/min 10/01/23 09:05 Est GFR (MDRD) Af Amer 46 mL/min (>60) L 10/01/23 09:05 Est GFR (MDRD) Non-Af 38 mL/min (>60) L 10/01/23 09:05 BUN/Creatinine Ratio 19.6 RATIO (10-20) 10/01/23 09:05 Glucose 133 mg/dL (74-106) H 10/01/23 09:05 Calcium 10.4 mg/dL (8.5-10.1) H 10/01/23 09:05 History & Record Review Discussion w/independent historian: Patient Lab Data Attestation: I reviewed the patient's lab results. Discharge Plan Triage Chief Complaint: Upper Extremity Injury ED Provider: Amador Jackson Dx/Rx/DC Orders Clinical Impression: Swelling of right wrist, Acute pain of right wrist Instructions: ED Gout Prescriptions: New prednisone 20 mg tablet 40 mg PO DAILY 5 Days Qty: 10 0RF amoxicillin-pot clavulanate [amoxicillin-pot clavulanate] 875-125 mg tablet 875 mg PO Q12H Qty: 14 0RF No Action atorvastatin 40 mg tablet 40 mg PO QHS Patient Comments: Take 1 tablet by mouth daily allopurinol 100 mg tablet 100 mg PO DAILY Patient Comments: take 1 tablet by mouth daily clonidine HCl 0.2 mg tablet 0.2 mg PO BID Patient Comments: take 1 tablet by mouth twice a day glimepiride 4 mg tablet 4 mg PO DAILY Patient Comments: TAKE ONE TABLET BY MOUTH EVERY MORNING BEFORE BREAKFAST Eliquis 5 mg Tablet 5 mg PO BID diltiazem HCl 180 mg capsule,extended release 24hr 180 mg PO DAILY Patient Comments: take 1 capsule by mouth once daily chlorthalidone 25 mg tablet 25 mg PO DAILY Patient Comments: take 1 tablet by mouth once daily cefdinir 300 mg capsule 300 mg PO BID 3 Days Qty: 6 0RF Primary Care Provider: Sravan Rossi Referrals: Sravan Rossi MD [Primary Care Provider] - 3-5 Days (on Saturday for repeat exam ) Disposition Disposition: Home, Self Care Discharge Date/Time: 10/01/23 12:05
[2023-10-01 09:22] LABS: Absolute Lymphocyte Count 1.81 X10^3/uL (0.83-4.51); Absolute Neutrophil Count 14.5 X10^3/uL (2.0-7.7); Basophil# 0.04 X10^3/uL; Basophil% 0.2 % (0-1); Eosinophil# 0.03 X10^3/uL; Eosinophils% 0.2 % (0-5); Hematocrit 42.2 % (37-47); Hemoglobin 13.7 g/dL (12.0-15.0); Lymphocyte # 1.81 X10^3/ul (0.83-4.51); Lymphocyte % 10.2 % (19-41); Mean Corp Hgb Conc 32.5 g/dL (32-36); Mean Corpuscular Hgb 30.2 pg (27.0-32.0); Mean Platelet Vol. 9.9 fl (6.2-12.0); Monocyte# 1.18 X10^3/uL; Monocyte% 6.7 % (0-10); NRBC Flagged by Analyzer 0 % (0-5); Neutrophil # 14.53 X10^3/uL (2.7-7.7); Neutrophil % 82.2 % (47-70); Platelet Count 311 K/mm3 (150-450); RBC Distribution Width CV 14.1 % (11.6-14.6); RBC Distribution Width SD 47.5 fl (35.1-43.9); Red Blood Count 4.54 M/mm3 (4.2-5.4); White Blood Count 17.7 K/mm3 (4.4-11.0)
[2023-10-01 09:31] LABS: International Normalized Ratio 1.1; Prothrombin Time (Protime)PT. 14.5 SECONDS (11.7-14.9)
[2023-10-01 09:32] LABS: Anion Gap 4 (5-15); BUN 27 mg/dL (7-18); BUN/Creat Ratio 19.6 RATIO (10-20); Calcium,Total 10.4 mg/dL (8.5-10.1); Chloride 104 mmol/L (98-107); Creatinine, Serum 1.38 mg/dL (0.55-1.02); EST Glomerular Filtration Rate 38 mL/min (>60); Est Glom Filt Rate - Afr Amer 46 mL/min (>60); Estimated Creatinine Clearance 22.29 ml/min; Glucose 133 mg/dL (74-106); Partial Thromboplast Time 26.2 Seconds (24.1-36.2); Potassium 4.3 mmol/L (3.5-5.1); Sodium Level 135 mmol/L (136-145)
--- NOTE | 2023-10-01 09:34 | VDUE_ITS ---
Reason For Study: swelling Right Proximal Left Proximal Right jugular vein is spontaneous, widely Left subclavian vein is spontaneous, widely patent, phasic, with no intraluminal patent, phasic, with no intraluminal echogenicity noted. echogenicity noted. Right subclavian vein is spontaneous, widely patent, phasic, with no intraluminal echogenicity noted. Right Lower Arm Right radial vein is compressible. Right ulnar vein is compressible. Right Arm Right axillary vein is spontaneous, patent, phasic, competent, compressible and demonstrates augmentation. Right brachial vein is compressible. Right cephalic vein is compressible. Right basilic vein is compressible. Prelim given to Dr. Pérez. VL/Venous Duplex US, Unilateral Interpretation Summary Deep veins of the right upper extremity are patent and compressible segmentally . There is no evidence of deep vein thrombosis. Superficial veins of the right upper extremity are patent and compressible segm entally. There is no evidence of superficial vein thrombosis. Ordering Physician: Amador Jackson Performed By: Renard George RVT ???
[2023-10-01 11:00] VITALS: BP 134/78; PULSE 64; RESP 16; TEMP 36.4; O2SAT 99
== END 2023-10-01 12:05 | disposition home or self-care (01) ==
PROVIDERS: Emergency Provider Emergency Medicine; PCP Family Medicine; Visit Provider Emergency Medicine
DX: M25.531 Pain in right wrist (principal); J44.9 Chronic obstructive pulmonary disease, unspecified; I48.91 Unspecified atrial fibrillation; E11.9 Type 2 diabetes mellitus without complications; M10.9 Gout, unspecified; Z79.899 Other long term (current) drug therapy; Z79.01 Long term (current) use of anticoagulants; I10 Essential (primary) hypertension; Z79.84 Long term (current) use of oral hypoglycemic drugs; Z90.49 Acquired absence of other specified parts of digestive tract; R22.31 Localized swelling, mass and lump, right upper limb; M25.521 Pain in right elbow
CPT/HCPCS: 73080; 73110; 80048; 85025; 85610; 85730; 93971; 99285; A4216

== ENCOUNTER 2023-10-07 18:19 | Inpatient (IN) | payer MEDICARE, OTHER, SELFPAY ==
[2023-10-07 18:22] VITALS: BP 141/64; PULSE 108; RESP 14; TEMP 36.8; O2SAT 97
--- NOTE | 2023-10-07 18:47 | CT_ITS ---
EXAM: CT ABDOMEN AND PELVIS WITH INTRAVENOUS CONTRAST CLINICAL INDICATION: Nausea and vomiting TECHNIQUE: Helically acquired images were obtained of the abdomen and pelvis with intravenous contrast. This CT exam was performed using one or more of the following dose reduction techniques: automated exposure control, adjustment of the mA and/or kV according to patient size, and/or use of iterative reconstruction technique. CONTRAST: IV 75mL [id number]-[id number] COMPARISON: No relevant prior studies available. FINDINGS: LOWER THORAX: Minimal dependent atelectasis and/or scarring in the basilar lungs. Status post CABG. No cardiomegaly. No significant pericardial effusion. ABDOMEN: LIVER: No significant abnormality. Homogeneous. No focal mass. GALLBLADDER AND BILE DUCTS: Status post cholecystectomy. No intra- or extrahepatic biliary ductal dilation. PANCREAS: No focal pancreatic abnormality. Mild peripancreatic stranding perhaps indicative of edema. SPLEEN: No significant abnormality. Normal size without focal cystic or solid mass. ADRENALS: No significant abnormality. No nodules. KIDNEYS AND URETERS: Mild atrophic changes of the bilateral kidneys. Left lower pole renal cortical cyst for which no follow-up is indicated. No hydronephrosis. STOMACH AND BOWEL: No significant abnormality. No stomach or bowel distention. No focal inflammatory change. PELVIS: APPENDIX: Normal appendix in the right lower quadrant. BLADDER: No significant abnormality. REPRODUCTIVE: Status post hysterectomy. ABDOMEN and PELVIS: INTRAPERITONEAL SPACE: No significant abnormality. No ascites or other fluid collection. No free air. BONES/JOINTS: Median sternotomy. Osseous degenerative changes. No suspicious lytic or blastic abnormality. SOFT TISSUES: No significant abnormality. No discrete abdominal or pelvic wall hernia. VASCULATURE: Atherosclerosis of the aorta and its branch vessels. Abdominal aorta is non-dilated. LYMPH NODES: No significant abnormality. No enlarged lymph nodes. CT/Abdomen/Pelvis W IV Cont ONLY IMPRESSION: Findings consistent with uncomplicated acute pancreatitis. Correlate clinically. Electronically Signed: Gianluca Pino DO at 20:38 EDT ,
--- NOTE | 2023-10-07 18:48 | EKG12_ITS ---
Test Reason : DYSRHYTHMIA Blood Pressure : / mmHG Vent. Rate : 109 BPM Atrial Rate : 000 BPM P-R Int : 000 ms QRS Dur : 062 ms QT Int : 332 ms P-R-T Axes : 000 022 184 degrees QTc Int : 447 ms Atrial fibrillation with rapid ventricular response with premature ventricular or aberrantly conducte d complexes ST & T wave abnormality, consider inferior ischemia ST & T wave abnormality, consider anterolateral ischemia Abnormal ECG Confirmed by ELFEGO MENEZES, FRANK ([id number]), editor magazine SUZIE DOLL ([id number]) on 10/14/2023 1:23:27 PM Referred By: Confirmed By:CHELLY TELLES MD
--- NOTE | 2023-10-07 18:49 | EX.ED.DYSGE1 ---
HPI History of Present Illness Chief Complaint: Nausea/Vomiting Narrative Narrative: 87-year-old female past medical history of remote cholecystectomy, lives at home alone, presents with nausea, vomiting, and generalized weakness. She states her symptoms began on Saturday with flulike symptoms, although she denies any fever or cough. No shortness of breath. She states she feels sick to her stomach and today she awoke with nausea and vomited twice. She denies any problems with bowel movements, no diarrhea, no problems with urination, no dysuria or hematuria. Her neighbor has been coming over to help her and cook meals for her. She lives at home alone but her daughter is trying to come to visit her from [place] as soon as she can get a flight. Patient called EMS today because she was too weak to get out of bed. [facility] Medical History Afib COPD (chronic obstructive pulmonary disease) Diabetes Hypertension Sleep apnea Home Medications allopurinol 100 mg tablet 100 mg PO DAILY gout 06/18/21 [History Last Taken 06/16/21] atorvastatin 40 mg tablet 40 mg PO QHS cholesterol 06/18/21 [History Last Taken 06/16/21] clonidine HCl 0.2 mg tablet 0.2 mg PO BID HTN 06/18/21 [History Last Taken 06/16/21] glimepiride 4 mg tablet 4 mg PO DAILY diabetes 06/18/21 [History Last Taken 06/16/21] chlorthalidone 25 mg tablet 25 mg PO DAILY blood pressure 06/23/21 [History Last Taken Unknown] diltiazem HCl 180 mg capsule,extended release 24 hr 180 mg PO DAILY blood pressure 06/23/21 [History Last Taken Unknown] aspirin 81 mg capsule 81 mg PO DAILY 10/07/23 [History Last Taken Unknown] insulin degludec 100 unit/mL (3 mL) subcutaneous pen (Tresiba FlexTouch U-100 insulin) 10 unit subcut DAILY 10/07/23 [History Last Taken Unknown] Allergy/AdvReac Type Severity Reaction Status Date / Time No Known Allergies Allergy Verified 10/01/23 08:09 Surgical History S/P cholecystectomy S/P triple vessel bypass Social History Smoking Status: Never smoker ROS ROS ED ROS Narrative Constitutional: No fever, no chills. Generalized weakness. HEENT: No sore throat. No neck pain. No loss of vision. No rhinorrhea. Cardiovascular: No chest pain. No palpitations. No pedal edema. Respiratory: No cough, no shortness of breath. Abdominal: No abdominal pain. Positive nausea and vomiting, 2 episodes today. No hematemesis. No diarrhea. No reported problems with bowel movement. Genitourinary: No dysuria. No hematuria. Musculoskeletal: No myalgias. No arthralgias. Neurologic: No headaches. No dizziness. No lightheadedness. Skin: No rash. No change in color. Psychiatric: No depression. No anxiety. EXAM Physical Exam Narrative Exam Narrative: Afebrile. Vital signs noted. HEENT: Normocephalic. Atraumatic. PERRL, EOMI. Neck soft and supple. No point tenderness or step off. Dry to tacky mucous membranes. Cardiovascular: Regular rate and rhythm with intermittent tachycardia. No murmurs, rubs, or gallops appreciated. Respiratory: No tachypnea. Lungs clear to auscultation bilaterally. Gastrointestinal: Abdomen soft, nontender, with normoactive bowel sounds. No rebound or guarding. Neurological: Awake. Alert. Nonfocal, nonlateralizing. Skin: No rash. Normal color. No pallor. Musculoskeletal: No pedal edema. Full range of motion extremities. Const Vital Signs: 10/07/23 18:22 10/07/23 18:36 10/07/23 20:21 Temperature 98.3 F Temperature Source Temporal Pulse Rate 108 H 104 H Respiratory Rate 14 21 H Respiratory Effort Normal Respiratory Pattern Irregular Blood Pressure 141/64 H 131/70 H Blood Pressure Mean 89 90 Pulse Ox 97 94 Oxygen Delivery Method Room Air Room Air 10/07/23 21:19 Temperature 98.6 F Temperature Source Pulse Rate 96 Respiratory Rate 21 H Respiratory Effort Respiratory Pattern Blood Pressure 145/64 H Blood Pressure Mean 91 Pulse Ox 94 Oxygen Delivery Method MDM MDM MDM Narrative Medical decision making narrative: Concern is for occult infection including UTI or pneumonia causing her generalized weakness. I have lower suspicion for pneumonia as she does not have a cough or fever. Regarding her nausea and vomiting, she may have gastritis versus beginnings of gastroenteritis. I have lower suspicion for bowel obstruction based on her history and physical as well. Comprehensive workup was pursued. She appears mildly dehydrated. She was bolused normal saline 1 L intravenously. I will obtain a CBC, CMP, and lipase to help rule out pancreatitis. EKG and chest x-ray will also be obtained as well as a single troponin. Urinalysis will be obtained and reviewed to help rule out infection. Regardless, patient lives at home alone and is too weak to go home currently. I reviewed the patient's laboratory work from today and she has a leukocytosis of 31.9. She states she does not have a history of leukemia. Hemoglobin normal at 13.6, hematocrit 41.0, platelet count normal at 359. She shows dehydration on her electrolyte panel with a sodium of 133, potassium slightly low at 3.2, BUN of 78 and creatinine 1.63 but she has chronic renal insufficiency. Glucose is elevated at 351. However she has a normal anion gap of 9 so I have no concern for diabetic ketoacidosis. Lactic acid is normal at 1.6. Repeat is 1.0. Lipase is slightly elevated at 166 although she states that she is not really having abdominal pain. Urinalysis is positive for infection with WBCs 25-50. Urine culture will be sent, and she was treated with Rocephin 1 g intravenously. I reviewed her laboratory work further and her troponin is elevated at 163, however without chest pain I do think this is probably secondary to renal insufficiency. She did have a history of coronary artery disease. EKG was interpreted by myself independently as atrial fibrillation at 109 bpm with PVCs but no acute ST changes. No STEMI. I reviewed her chest x-ray and 1 view and interpreted independently and see no evidence of pneumothorax, I do not appreciate a consolidation. I reviewed the radiology report which comments on left lingual scarring versus pneumonia. She has already received Rocephin intravenously. Clinically, I do not feel that she has a pneumonia. I discussed the patient with Dr. Muir who will admit the patient to the PCU given her pancreatitis, elevated troponin, UTI, and chronic renal insufficiency. I had already discussed the patient with Dr. Anderson as well to inform them of the elevated troponin and that Dr. Muir wishes to start her on heparin. Disposition is admitted in stable condition. History & Record Review Discussion w/independent historian: Patient Lab Data Attestation: I reviewed the patient's lab results. Labs: Laboratory Results - last 24 hr 10/07/23 10/07/23 10/07/23 19:15 20:17 21:11 WBC 31.9 H* RBC 4.60 Hgb 13.6 Hct 41.0 MCV 89.1 MCH 29.6 MCHC 33.2 RDW Std Deviation 45.1 H RDW Coeff of Bin 14.0 Plt Count 359 MPV 10.3 Immature Gran % (Auto) 0.900 Neut % (Auto) 89.8 H Lymph % (Auto) 4.3 L Peach % (Auto) 4.8 Eos % (Auto) 0.1 Baso % (Auto) 0.1 Absolute Neuts (auto) 28.6 H Absolute Lymphs (auto) 1.37 Nucleated RBC % 0.1 Differential Comment SCANNED Diff Path Review May foll Sodium 133 L Potassium 3.2 L Chloride 96 L Carbon Dioxide 28.0 Anion Gap 9 BUN 78 H Creatinine 1.63 H Est GFR (MDRD) Af Amer 38 L Est GFR (MDRD) Non-Af 32 L BUN/Creatinine Ratio 47.9 H Glucose 351 H Lactic Acid 1.6 1.0 Calcium 10.5 H Total Bilirubin 0.50 AST 20 ALT 26 Alkaline Phosphatase 80 Troponin I High Sens 163 H* Total Protein 7.9 Albumin 3.0 L Globulin 4.9 H Albumin/Globulin Ratio 0.6 L Lipase 166 H Urine Color Yellow Urine Clarity Clear Urine pH 6.5 Ur Specific Davidson 1.010 Urine Protein 100 H Urine Glucose (UA) 1000 H Urine Ketones Negative Urine Occult Blood 10 H Urine Nitrite Negative Urine Bilirubin Negative Urine Urobilinogen Normal Ur Leukocyte Esterase 500 H Urine RBC 0 SEEN Urine WBC 25-50 SEEN Ur Squamous Epith Cells 0 SEEN Urine Bacteria 1+ Urine Mucus 0 SEEN Radiography Diagnostic Testing: Clinical Impression(s) from Imaging Studies Abdomen/Pelvis CT 10/07/23 18:47 IMPRESSION: Findings consistent with uncomplicated acute pancreatitis. Correlate clinically. Electronically Signed: Gianluca Pino DO at 20:38 EDT , Chest X-Ray 10/07/23 19:35 IMPRESSION: 1. Status post CABG. Mild apparent cardiomegaly and/or pericardial effusion. 2. Minimal lingular and/or left lower lobe airspace disease may be scarring, atelectasis, or perhaps pneumonia. Electronically Signed: Gianluca Pino DO at 20:15 EDT , Discharge Plan Dx/Rx/DC Orders Clinical Impression: UTI (urinary tract infection), Generalized weakness, Leukocytosis, Pancreatitis, Elevated troponin, Chronic renal insufficiency, Nausea and vomiting Disposition Disposition: Acute Care Hospital [facility] Discharge Date/Time: 10/07/23 22:30
[2023-10-07] MEDS: Ondansetron 4 MG/2 ML Vial IV (19:21)
[2023-10-07] MEDS: 0.9% Normal Saline (1000mL) 1,000 ML 1000 ML IV (19:21)
[2023-10-07 19:23] LABS: Absolute Lymphocyte Count 1.37 X10^3/uL (0.83-4.51); Absolute Neutrophil Count 28.6 X10^3/uL (2.0-7.7); Basophil# 0.04 X10^3/uL; Basophil% 0.1 % (0-1); Eosinophil# 0.04 X10^3/uL; Eosinophils% 0.1 % (0-5); Hemoglobin 13.6 g/dL (12.0-15.0); Lymphocyte # 1.37 X10^3/ul (0.83-4.51); Lymphocyte % 4.3 % (19-41); Mean Corp Hgb Conc 33.2 g/dL (32-36); Mean Corpuscular Hgb 29.6 pg (27.0-32.0); Mean Corpuscular Volume 89.1 fL (81-99); Mean Platelet Vol. 10.3 fl (6.2-12.0); Monocyte# 1.53 X10^3/uL; Monocyte% 4.8 % (0-10); NRBC Flagged by Analyzer 0.1 % (0-5); Neutrophil # 28.61 X10^3/uL (2.7-7.7); Neutrophil % 89.8 % (47-70); POSITIVE COUNT YES; POSITIVE DIFFERENTIAL YES; Platelet Count 359 K/mm3 (150-450); RBC Distribution Width SD 45.1 fl (35.1-43.9)
[2023-10-07 19:29] LABS: Differential Indicated SCAN CRITERIA MET; White Blood Count 31.9 K/mm3 (4.4-11.0)
--- NOTE | 2023-10-07 19:35 | RAD_ITS ---
EXAM: XR CHEST, 1 VIEW CLINICAL INDICATION: Coronary artery disease TECHNIQUE: Frontal view of the chest. COMPARISON: CT abdomen and pelvis on the same date; CT chest, 06/18/2021 FINDINGS: LUNGS AND PLEURAL SPACES: Minimal lingular and/or left lower lobe airspace disease may be scarring, atelectasis, or perhaps pneumonia. No pneumothorax. No effusion. HEART: Status post CABG. Mild apparent cardiomegaly and/or pericardial effusion. MEDIASTINUM: Central airways and mediastinal contour are unremarkable. BONES/JOINTS: Median sternotomy. No acute fracture. SOFT TISSUES: No significant abnormality. UPPER ABDOMEN: Status post cholecystectomy. RAD/Chest 1 View (Portable) IMPRESSION: 1. Status post CABG. Mild apparent cardiomegaly and/or pericardial effusion. 2. Minimal lingular and/or left lower lobe airspace disease may be scarring, atelectasis, or perhaps pneumonia. Electronically Signed: Gianluca Pino DO at 20:15 EDT ,
[2023-10-07 19:48] LABS: ALB/GLOB Ratio 0.6 RATIO (0.9-2.4); AST(SGOT) 20 U/L (15-37); Alanine Aminotransfer ALT/SGPT 26 U/L (13-56); Alkaline Phosphatase 80 U/L (45-117); Anion Gap 9 (5-15); BUN 78 mg/dL (7-18); BUN/Creat Ratio 47.9 RATIO (10-20); Calcium,Total 10.5 mg/dL (8.5-10.1); Chloride 96 mmol/L (98-107); Creatinine, Serum 1.63 mg/dL (0.55-1.02); EST Glomerular Filtration Rate 32 mL/min (>60); Est Glom Filt Rate - Afr Amer 38 mL/min (>60); Globulin 4.9 g/dL (2.2-4.2); Glucose 351 mg/dL (74-106); Lipase 166 U/L (13-75); Potassium 3.2 mmol/L (3.5-5.1); Protein, Total 7.9 g/dL (6.4-8.2); Sodium Level 133 mmol/L (136-145); Troponin-I HS 163 pg/mL (3.0-54.0)
[2023-10-07 19:49] LABS: Lactic Acid 1.6 mmol/L (0.4-1.9)
[2023-10-07 20:18] LABS: Differential Comment SCANNED
[2023-10-07 20:21] VITALS: BP 131/70; PULSE 104; RESP 21; O2SAT 94
[2023-10-07 20:22] LABS: Mucous, Urine 0 SEEN /hpf (<or=2+); Red Blood Cells-Urine 0 SEEN /hpf (0-5); Squamous Epithelial Cells - UA 0 SEEN /hpf (5-10)
[2023-10-07 20:27] LABS: Color, Urine Yellow (Yellow); Glucose, Dipstick 1000 mg/dl (Normal); Ketone-Dipstick Negative (Negative); Leukocyte Esterase-Dipstick 500 /ul (Negative); Nitrite-Dipstick Negative (Negative); Occult Blood-Urine 10 /ul (Negative); Protein-Dipstick 100 mg/dl (Negative); Urine Bilirubin Dipstick Negative (Negative); Urine Clarity Clear (Clear); Urine Urobilinogen Normal (Normal); Urine pH 6.5 (5.0 - 8.0)
[2023-10-07] MEDS: Aspirin 81 MG TAB.CHEW 324 MG PO (20:36)
[2023-10-07 20:39] LABS: Bacteria 1+ /hpf (None Seen); White Blood Cells 25-50 SEEN /hpf (0-5)
--- NOTE | 2023-10-07 21:06 | PCM.HP.STD ---
[facility] - General General Date of Admission: 10/07/23 Date of Service: 10/07/23 Chief Complaint: Nausea & Vomiting. HPI Narrative HAL RUEDA, is a 87 F with a past medical history of essential hypertension, hyperlipidemia, diabetes mellitus type 2; of unknown control, history of atrial fibrillation; on diltiazem and (not on Eliquis due to cost issues), coronary artery disease; status post CABG x 3 (2013), remote history of cholecystectomy, gout, osteoarthritis, obstructive sleep apnea and history of tobacco abuse; with subsequent COPD who presents to [facility] ER complaining of nausea and vomiting. Ms. Rueda reports her symptoms began approximately 2 days prior to admission on Saturday, October 05, 2023 with flulike symptoms followed by nausea and bilious emesis x 2. She then continued to feel sick to her stomach today when she awoke she vomited twice again with severe generalized weakness that made it difficult for her to get out of bed so she activated EMS. She lives at home alone but she contacted her daughter who lives in [place] who is trying to come at this time. She denies associated fever, chills, sore throat, shortness of breath, cough dysuria, headache, lightheadedness, diarrhea, abdominal pain, blood in stool or blood in vomitus. In the ER her CT scan of the abdomen pelvis was positive for signs of acute pancreatitis with an elevated lipase of 166 units/L complicated by urinalysis suggestive of acute cystitis; without hematuria with leukocytosis of 31.9 present on admission compounded by elevated initial troponin of 163 pg/mL consistent with suspected non-STEMI type II along with hypokalemia of 3.2 mmol/L present on admission and suspected CHASE with elevated serum creatinine of 1.63 mg/dL and a BUN of 78 mg/dL present on admission (up from her baseline of 1.38 mg/dL and a BUN of 27 mg/dL 1 week ago) suspected to be due to dehydration with hypercalcemia of 10.5 mg/dL present on admission and hyperglycemia of 351 mg/dL present on admission and she was then admitted to the PCU for ongoing care for stay that is expected to be greater than 48 hours. [facility] Medical History Afib COPD (chronic obstructive pulmonary disease) Diabetes Hypertension On home oxygen therapy Sleep apnea Home Medications allopurinol 100 mg tablet 100 mg PO DAILY gout 06/18/21 [History Last Taken 06/16/21] atorvastatin 40 mg tablet 40 mg PO QHS cholesterol 06/18/21 [History Last Taken 06/16/21] clonidine HCl 0.2 mg tablet 0.2 mg PO BID HTN 06/18/21 [History Last Taken 06/16/21] glimepiride 4 mg tablet 4 mg PO DAILY diabetes 06/18/21 [History Last Taken 06/16/21] chlorthalidone 25 mg tablet 25 mg PO DAILY blood pressure 06/23/21 [History Last Taken Unknown] diltiazem HCl 180 mg capsule,extended release 24 hr 180 mg PO DAILY blood pressure 06/23/21 [History Last Taken Unknown] aspirin 81 mg capsule 81 mg PO DAILY 10/07/23 [History Last Taken Unknown] insulin degludec 100 unit/mL (3 mL) subcutaneous pen (Tresiba FlexTouch U-100 insulin) 10 unit subcut DAILY 10/07/23 [History Last Taken Unknown] Allergy/AdvReac Type Severity Reaction Status Date / Time No Known Allergies Allergy Verified 10/01/23 08:09 Surgical History S/P cholecystectomy S/P triple vessel bypass Social History Smoking Status: Never smoker ROS ROS Narrative Review of systems: General: Patient admits to generalized weakness but denies fever or chills. HENT: Denies headache, denies stuffy nose, denies sore throat EYES: Denies changes in vision or discharge from eyes. Resp: Denies cough, denies shortness of breath Cardiac: Denies chest pain, palpitations or heart racing. GI: Denies abdominal pain, denies changes in bowel, had some nausea : Denies changes in urination Extremity: Denies swelling Musculoskeletal: Feels somewhat generally weak and unwell but denies arthralgias or myalgias. Neuro: Patient denies headache, paresthesias or focal neurologic weakness. Heme: Denies any easy bleeding or easy bruising. Skin: Denies rashes Psychiatric: No complaints voiced related to uncontrolled depression or anxiety. Endocrine: No polyuria, polydipsia or polyphagia. The rest of the 14 point ROS was negative except for positives in HPI. Vital Signs Vital Signs Vital Signs: 10/07/23 18:22 10/07/23 18:36 10/07/23 20:21 Temperature 98.3 F Temperature Source Temporal Pulse Rate 108 H 104 H Respiratory Rate 14 21 H Respiratory Effort Normal Respiratory Pattern Irregular Blood Pressure 141/64 H 131/70 H Blood Pressure Mean 89 90 Pulse Ox 97 94 Oxygen Delivery Method Room Air Room Air Physical Exam Const alert, oriented x3, no apparent distress and average body habitus General Appearance: cooperative HEENT normocephalic, head/scalp atraumatic, hearing grossly normal bilaterally and moist oral mucous membranes Eyes PERRL and EOMs intact bilaterally Neck no lymphadenopathy and supple Resp normal respiratory effort, no retractions, no use of accessory muscles and clear to auscultation bilaterally GI normal to inspection, nondistended, normoactive bowel sounds, soft to palpation, non-tender and non-distended Extremity normal to inspection and full ROM Skin Skin Narrative: Patient has no evidence of rash. Neuro oriented x3, CN's II-XII intact bilaterally, moves all extremities and no focal motor deficits Sensorium / Orientation: awake, alert, oriented to person, oriented to place and oriented to time Speech: speech normal Psych affect normal Results Medical Records Data Attestation: I reviewed the patient's medical records Lab / Micro Data Attestation: I reviewed the patient's lab results. 10/07/23 19:15 10/07/23 19:15 Labs: Laboratory Results - last 24 hr 10/07/23 19:15: WBC 31.9 H*, RBC 4.60, Hgb 13.6, Hct 41.0, MCV 89.1, MCH 29.6, MCHC 33.2, RDW Std Deviation 45.1 H, RDW Coeff of Bin 14.0, Plt Count 359, MPV 10.3, Immature Gran % (Auto) 0.900, Neut % (Auto) 89.8 H, Lymph % (Auto) 4.3 L, Lipscomb % (Auto) 4.8, Eos % (Auto) 0.1, Baso % (Auto) 0.1, Absolute Neuts (auto) 28.6 H, Absolute Lymphs (auto) 1.37, Nucleated RBC % 0.1, Differential Comment SCANNED, Diff Path Review May foll, Sodium 133 L, Potassium 3.2 L, Chloride 96 L, Carbon Dioxide 28.0, Anion Gap 9, BUN 78 H, Creatinine 1.63 H, Est GFR (MDRD) Af Amer 38 L, Est GFR (MDRD) Non-Af 32 L, BUN/Creatinine Ratio 47.9 H, Glucose 351 H, Lactic Acid 1.6, Calcium 10.5 H, Total Bilirubin 0.50, AST 20, ALT 26, Alkaline Phosphatase 80, Troponin I High Sens 163 H*, Total Protein 7.9, Albumin 3.0 L, Globulin 4.9 H, Albumin/Globulin Ratio 0.6 L, Lipase 166 H 10/07/23 20:17: Urine Color Yellow, Urine Clarity Clear, Urine pH 6.5, Ur Specific River 1.010, Urine Protein 100 H, Urine Glucose (UA) 1000 H, Urine Ketones Negative, Urine Occult Blood 10 H, Urine Nitrite Negative, Urine Bilirubin Negative, Urine Urobilinogen Normal, Ur Leukocyte Esterase 500 H, Urine RBC 0 SEEN, Urine WBC 25-50 SEEN, Ur Squamous Epith Cells 0 SEEN, Urine Bacteria 1+, Urine Mucus 0 SEEN Imaging Radiology Impression Abdomen/Pelvis CT 10/07/23 18:47 IMPRESSION: Findings consistent with uncomplicated acute pancreatitis. Correlate clinically. Electronically Signed: Gianluca Pino DO at 20:38 EDT , Chest X-Ray 10/07/23 19:35 IMPRESSION: 1. Status post CABG. Mild apparent cardiomegaly and/or pericardial effusion. 2. Minimal lingular and/or left lower lobe airspace disease may be scarring, atelectasis, or perhaps pneumonia. Electronically Signed: Gianluca Pino DO at 20:15 EDT , Assessment & Plan Assessment/Plan (1) Acute pancreatitis: QUALIFIERS: Acute pancreatitis complication: no infection or necrosis Pancreatitis type: unspecified pancreatitis type Qualified Code(s): K85.90 - Acute pancreatitis without necrosis or infection, unspecified (2) Nausea and vomiting: QUALIFIERS: Vomiting type: bilious vomiting Qualified Code(s): R11.14 - Bilious vomiting (3) UTI (urinary tract infection): QUALIFIERS: Hematuria presence: without hematuria Urinary tract infection type: acute cystitis Qualified Code(s): N30.00 - Acute cystitis without hematuria (4) Leukocytosis: QUALIFIERS: Leukocytosis type: unspecified Qualified Code(s): D72.829 - Elevated white blood cell count, unspecified (5) CHASE (acute kidney injury): (6) Dehydration: (7) Generalized weakness: (8) Elevated troponin: PLAN: Plan 1. Acute pancreatitis suggested on admission CT with an elevated lipase of 166 units/L with intractable nausea and vomiting - Admit to PCU and volume resuscitate. Keep strict n.p.o. and give Protonix IV. Also give Zofran IV as needed for breakthrough nausea vomiting. Serialize lipase and monitor for improvement. Finally, we will check MRCP to confirm suspicion and evaluate for other potential acute pathologic findings that may clarify underlying etiology. 2. Acute cystitis; without hematuria with suspected LLL infiltrate likely due to possible aspiration with Leukocytosis of 31.9 present on admission complicating #1 - Continue treatment with IV Zosyn and await culture and sensitivity data. Give Tylenol IV prn pain or fever. Patient did not have signs of sepsis at time of admission and she also denies shortness of breath. 3. Elevated initial troponin of 163 pg/mL consistent with suspected non-STEMI type II in the setting of known CAD; s/p CABG x 3 compounding #1 & #2 - Give IV Heparin and serialize troponin. Start BASA, Plavix and statin when patient is better able to tolerate PO intake. ER physician contacted real estate rental agent on-call to see patient on rounds in the a.m. with help appreciated in advance. 4. CHASE with elevated serum creatinine of 1.63 mg/dL and a BUN of 78 mg/dL present on admission (up from her baseline of 1.38 mg/dL and a BUN of 27 mg/dL 1 week ago) suspected to be due to dehydration arising from #1 - #3 - Aggressively volume resuscitate and recheck BMP in AM to monitor for improvement. 5. Hypokalemia of 3.2 mmol/L present on admission - Give supplemental IV plus oral KCl and then recheck level in the AM. 6. Hypercalcemia of 10.5 mg/dL present on admission - Give NS IVF and recheck level plus check PTH. 7. Hyperglycemia of 351 mg/dL present on admission in the setting of known DM-2 - Keep NPO. FSBS q. 6 hours. Check HgbA1c to objectively evaluate the quality of diabetic control. 8. Generalized Weakness attributable to #1 - #7 - PT and Case Management to consult and treat. 9. Essential hypertension - Hold scheduled oral antihypertensives and give IV Hydralazine prn for systolic blood pressure > 160 mmHg. 10. Hyperlipidemia - Check Lipid Profile and restart statin when patient is able to tolerate oral intake. 11. History of atrial fibrillation; on diltiazem and Eliquis - Patient will be on IV Heparin for #3 and we will give IV Cardizem if she develops RVR. 12. Remote history of cholecystectomy - Noted. 13. Gout - Stable with no evidence of flare. 14. Osteoarthritis - Stable. 15. Obstructive sleep apnea - Continue nocturnal CPAP as previous. 16. History of tobacco abuse; with subsequent COPD - Stable with no evidence of flare. Continue prn nebulizers. 17. DVT prophylaxis - Patient on IV Heparin for #3. Total time: Approximately 85 minutes. Charges/Coding Visit Charges Inpatient E&M: 39071 Init Hosp L3
[2023-10-07] MEDS: Ceftriaxone 1 GM/50 ML BAG IV (21:12)
[2023-10-07 21:19] VITALS: BP 145/64; PULSE 96; RESP 21; TEMP 37; O2SAT 94
[2023-10-07 22:00] VITALS: BP 155/70; PULSE 94; RESP 18; O2SAT 97
[2023-10-07 22:30] VITALS: BMI 25.3
[2023-10-07 22:32] VITALS: BP 150/73; PULSE 86; RESP 16; TEMP 36.3; O2SAT 97
[2023-10-07 22:55] VITALS: O2SAT 98
[2023-10-07 23:35] LABS: PTHIN 316.8 pg/mL (18.4-80.1)
[2023-10-07] MEDS: Pantoprazole Sodium 40 MG in 0.9% Normal Saline (100mL MB+) 100 ML 330 MG IV (23:38)
[2023-10-07 23:43] LABS: Hemoglobin A1c 8.8 % (3.8-5.6)
[2023-10-07] MEDS: KCL 20MEQ in 0.9% NS 20 MEQ/1,000 ML IV.SOLN. 100 MEQ IV (23:58)
[2023-10-07] MEDS: Piperacil/Tazobactam 3.375 GM in 0.9% Normal Saline (50mL MB+) 50 ML IV (23:58)
[2023-10-08] VITALS (7 sets, daily range): BP systolic 119–146; BP diastolic 46–95; PULSE 71–105; RESP 14–18; TEMP 35.8–36.6; O2SAT 95–100; BMI 25.3
[2023-10-08 00:14] LABS: Troponin-I HS 157 pg/mL (3.0-54.0)
[2023-10-08 00:55] LABS: Bedside Glucose 225 mg/dL (74-106)
[2023-10-08 01:54] LABS: Partial Thromboplast Time 26.6 Seconds (24.1-36.2)
[2023-10-08 02:03] LABS: Troponin-I HS 142 pg/mL (3.0-54.0)
[2023-10-08] MEDS: 0.9% Saline Lock 10 ML Syringe IV ×2 (02:08→11:13)
[2023-10-08] MEDS: Heparin Injection (Vial) 5,000 UNIT/ML VIAL 3500 UNIT IV (02:08)
[2023-10-08] MEDS: Insulin Lispro 100 UNIT/ML INSULN.PEN SC (02:09)
[2023-10-08] MEDS: HEPARIN/D5w 25,000 UNITS 25,000 UNITS/250 ML IV.SOLN. 7 UNITS CONT INF (02:09)
--- NOTE | 2023-10-08 03:12 | MRI_ITS ---
EXAM: MR ABDOMEN WITHOUT INTRAVENOUS CONTRAST, MRCP PROTOCOL CLINICAL INDICATION: Acute pancreatitis TECHNIQUE: Multiplanar and multisequence MR images of the abdomen without intravenous contrast obtained with MRCP sequence. Three-dimensional post-processing reconstructions were performed. COMPARISON: CT abdomen and pelvis 10/07/2023 FINDINGS: LOWER THORAX: Normal. No pleural effusion. LIVER: Normal. Normal morphology. GALLBLADDER AND BILE DUCTS: Gallbladder is absent. Common bile duct measures 8 mm in maximum diameter which is normal for postcholecystectomy patient. There is a low insertion site of the cystic duct with cystic duct remnant measuring approximately 4 cm in length. PANCREAS: Diffuse edema within the anterior pararenal space noted adjacent to the pancreas indicative of acute pancreatitis. No focal cystic or solid pancreatic mass. No pancreatic ductal dilatation. SPLEEN: Normal. Non-enlarged. ADRENALS: Normal. No nodules. KIDNEYS AND URETERS: Normal. Normal renal size and position. No hydronephrosis. INTRAPERITONEAL SPACE: Normal. No ascites or other fluid collection. VASCULATURE: Normal. Abdominal aorta is non-dilated. LYMPH NODES: No enlarged lymph nodes. MRI/MRCP Abdomen without Contrast IMPRESSION: Acute pancreatitis. As above. Electronically Signed: Rolf Mg MD at 10:50 EDT ,
[2023-10-08 06:45] LABS: Bedside Glucose 160 mg/dL (74-106)
[2023-10-08] MEDS: Aspirin 81 MG TAB.CHEW PO (08:33)
[2023-10-08] MEDS: Pantoprazole Sodium 40 MG in 0.9% Normal Saline (100mL MB+) 100 ML 330 MG IV (08:37)
[2023-10-08 08:55] LABS: Absolute Lymphocyte Count 1.77 X10^3/uL (0.83-4.51); Absolute Neutrophil Count 22.4 X10^3/uL (2.0-7.7); Basophil# 0.05 X10^3/uL; Basophil% 0.2 % (0-1); Eosinophil# 0.02 X10^3/uL; Eosinophils% 0.1 % (0-5); Hemoglobin 11.2 g/dL (12.0-15.0); Lymphocyte # 1.77 X10^3/ul (0.83-4.51); Lymphocyte % 6.9 % (19-41); Mean Corp Hgb Conc 32.9 g/dL (32-36); Mean Corpuscular Hgb 30.4 pg (27.0-32.0); Mean Corpuscular Volume 92.1 fL (81-99); Mean Platelet Vol. 10.7 fl (6.2-12.0); Monocyte# 1.32 X10^3/uL; Monocyte% 5.1 % (0-10); NRBC Flagged by Analyzer 0.1 % (0-5); Neutrophil # 22.35 X10^3/uL (2.7-7.7); Neutrophil % 86.7 % (47-70); POSITIVE DIFFERENTIAL YES; Platelet Count 286 K/mm3 (150-450); RBC Distribution Width CV 14.1 % (11.6-14.6); RBC Distribution Width SD 47.6 fl (35.1-43.9); Red Blood Count 3.69 M/mm3 (4.2-5.4); White Blood Count 25.8 K/mm3 (4.4-11.0)
[2023-10-08 09:02] LABS: Differential Indicated SCAN CRITERIA MET
[2023-10-08 09:28] LABS: Pathologist Review Reviewed
[2023-10-08 09:46] LABS: ALB/GLOB Ratio 0.6 RATIO (0.9-2.4); AST(SGOT) 23 U/L (15-37); Alanine Aminotransfer ALT/SGPT 23 U/L (13-56); Albumin, Serum 2.6 g/dL (3.2-5.0); Alkaline Phosphatase 68 U/L (45-117); Anion Gap 7 (5-15); BUN 69 mg/dL (7-18); BUN/Creat Ratio 47.6 RATIO (10-20); Calcium,Total 9.3 mg/dL (8.5-10.1); Chloride 106 mmol/L (98-107); Creatinine, Serum 1.45 mg/dL (0.55-1.02); EST Glomerular Filtration Rate 36 mL/min (>60); Est Glom Filt Rate - Afr Amer 44 mL/min (>60); Estimated Creatinine Clearance 19.26 ml/min; Globulin 4.1 g/dL (2.2-4.2); Glucose 134 mg/dL (74-106); Lipase 143 U/L (13-75); Magnesium 1.5 mg/dL (1.6-2.6); Phosphorus 1.6 mg/dL (2.5-4.9); Potassium 3.5 mmol/L (3.5-5.1); Protein, Total 6.7 g/dL (6.4-8.2); Sodium Level 139 mmol/L (136-145)
[2023-10-08 10:27] LABS: Partial Thromboplast Time 103.4 Seconds (24.1-36.2)
--- NOTE | 2023-10-08 10:27 | NURSING ---
Heparin gtt placed on hold at 0912 for patient to go to MRI. PTT was drawn at 0802, called lab at 1025 for result since there was no result in computer and it had been almost two and a half hours. PTT came back high at 103.4 and per protocol, heparin drip should be helf for one hour and rate decreased by 2 mL. Heparin drip will have been on hold a little over an hour once patient back from MRI, will restart drip at 5 mL/hr and place new PTT order.
[2023-10-08] MEDS: Piperacil/Tazobactam 3.375 GM in 0.9% Normal Saline (50mL MB+) 50 ML IV ×2 (11:12→22:00)
[2023-10-08] MEDS: KCL 20MEQ in 0.9% NS 20 MEQ/1,000 ML IV.SOLN. 100 MEQ IV ×2 (11:47→21:47)
[2023-10-08 11:56] LABS: Bedside Glucose 107 mg/dL (74-106)
--- NOTE | 2023-10-08 12:00 | CASEMGMT ---
SERENA FIGUEROA Face to Face with patient for initial transition planning/care coordination assessment. RN CM introduced self and role at [facility]. Patient lying in bed, alert and oriented. Patient willing to participate in assessment and is able to answer all questions appropriately. Care providers, pharmacy, and demographics verified. PCP: [place] Specialists: Katie Gordillo Preferred Pharmacy: [facility] Insurance: [facility], [place] Prescription Benefit: yes Living Will/HPOA: yes, daughter Jenae Pearl LNOK: Daughter, son Living Arrangements: Patient lives alone in a first floor apartment with ramp to enter. Patient is independent at home. Patient states daughter from [place] is coming to stay with her. Transportation: self, neighbor DME/HHC: Patient has shower chair, raised toilet, grab bars, walker, rollator, nebulizer, pulse ox, glucometer, oxygen through [facility] at 2lpm at . Patient has had [facility] in the past. Patient wishes to discharge home with C. CM will provide HHC list for patient to review. Patient states she has no further needs or concerns at this time. CM to follow for discharge planning needs that may arise. Disposition Plan: Patient to discharge home with HHC, family support, and follow-up plans in place. Violetta ANGULO, RN, CM
--- NOTE | 2023-10-08 16:06 | CHAPLAIN ---
Type of Pastoral Visit _x__ Initial Visit ___ Follow-up Visit ___ On-call Visit ___ General Patient Visit ___ Spiritual Assessment ___ Family Conference ___ Bereavement ___ Rapid Response ___ Code Blue ___ Other (describe below) Pastoral Care Referral From _x__ Patient ___ Family ___ Nurse ___ Physician ___ Graphics Production Specialist ___ Hatchery Laborer ___ Other (describe below) Sacrament/Intervention _x__ Active listening ___ Anointing ___ Hindu ___ Bereavement ___ Communion ___ Deisy exploration ___ ___ Life review _x__ Prayer ___ Reconciliation ___ Sacrament of Sick ___ Supportive presence ___ Wedding ___ Other (describe below) Pastoral Comments patient was napping in her chair but easily was awakened by voice; pt states that she is doing some better and her daughter will be flying in from [place] to help her for awhile; pt has a uatsdin connection and a good neighbor that assists too; pt reports no new needs but a prayer is welcomed
[2023-10-08 17:10] LABS: Bedside Glucose 137 mg/dL (74-106)
--- NOTE | 2023-10-08 18:58 | PN.HOSP_ITS ---
Reason for Visit Reason for Visit: Diagnoses Elevated white blood cell count, unspecified (10/07/23) Dehydration (10/07/23) Acute pancreatitis without necrosis or infection, unspecified (10/07/23) Acute kidney failure, unspecified (10/07/23) Acute cystitis without hematuria (10/07/23) Bilious vomiting (10/07/23) Weakness (10/07/23) Other specified abnormal findings of blood chemistry (10/07/23) Subjective Subjective Patient was seen and examined today, she does not complain of any abdominal pain, I have elected to increase her diet, patient's white blood cell count was elevated today at 25.8. I feel the patient's troponin elevation is nonspecific, I have elected to cancel her cardiology consultation and stop her heparin drip. Objective Data Objective Data Vital Signs: Vital Signs Temp Pulse Resp BP Pulse Ox O2 Del Method O2 Flow Rate 96.5 F L 93 14 142/82 H 96 Room Air 2 10/08/23 16:26 10/08/23 16:26 10/08/23 16:26 10/08/23 16:26 10/08/23 16:40 10/08/23 16:26 10/08/23 08:29 Oxygen Flow Rate (L/min) 2 Oxygen Delivery Method Room Air Weight: 53.07 kg Body Mass Index (BMI) 25.3 Intake & Output: Intake and Output for Last 24 Hours 10/06/23 10/07/23 10/08/23 23:59 23:59 23:59 Intake Total 1160 / 1160 1730.18 / 1730.18 Balance 1160 / 1160 1730.18 / 1730.18 Lab / Micro Data 10/08/23 08:02 10/08/23 08:02 Labs: Laboratory Results - last 24 hr 10/07/23 19:15: WBC 31.9 H*, RBC 4.60, Hgb 13.6, Hct 41.0, MCV 89.1, MCH 29.6, MCHC 33.2, RDW Std Deviation 45.1 H, RDW Coeff of Bin 14.0, Plt Count 359, MPV 10.3, Immature Gran % (Auto) 0.900, Neut % (Auto) 89.8 H, Lymph % (Auto) 4.3 L, [place] % (Auto) 4.8, Eos % (Auto) 0.1, Baso % (Auto) 0.1, Absolute Neuts (auto) 28.6 H, Absolute Lymphs (auto) 1.37, Nucleated RBC % 0.1, Differential Comment SCANNED, Diff Path Review Reviewed, Sodium 133 L, Potassium 3.2 L, Chloride 96 L , Carbon Dioxide 28.0, Anion Gap 9, BUN 78 H, Creatinine 1.63 H, Est GFR (MDRD) Af Amer 38 L, Est GFR (MDRD) Non-Af 32 L, BUN/Creatinine Ratio 47.9 H, Glucose 351 H, Hemoglobin A1c 8.8 H, Lactic Acid 1.6, Calcium 10.5 H, Total Bilirubin 0.50, AST 20, ALT 26, Alkaline Phosphatase 80, Troponin I High Sens 163 H*, Total Protein 7.9, Albumin 3.0 L, Globulin 4.9 H, Albumin/Globulin Ratio 0.6 L, Lipase 166 H 10/07/23 20:17: Urine Color Yellow, Urine Clarity Clear, Urine pH 6.5, Ur Specific [place] 1.010, Urine Protein 100 H, Urine Glucose (UA) 1000 H, Urine Ketones Negative, Urine Occult Blood 10 H, Urine Nitrite Negative, Urine Bilirubin Negative, Urine Urobilinogen Normal, Ur Leukocyte Esterase 500 H, Urine RBC 0 SEEN, Urine WBC 25-50 SEEN, Ur Squamous Epith Cells 0 SEEN, Urine Bacteria 1+, Urine Mucus 0 SEEN 10/07/23 21:11: Lactic Acid 1.0 10/07/23 22:46: Troponin I High Sens 157 H*, PTH Intact 316.8 H 10/08/23 00:06: POC Glucose 225 H 10/08/23 01:14: APTT 26.6, Troponin I High Sens 142 H* 10/08/23 06:21: POC Glucose 160 H 10/08/23 08:02: WBC 25.8 H, RBC 3.69 L, Hgb 11.2 L, Hct 34.0 L, MCV 92.1, MCH 30.4, MCHC 32.9, RDW Std Deviation 47.6 H, RDW Coeff of Bin 14.1, Plt Count 286, MPV 10.7, Immature Gran % (Auto) 1.000 H, Neut % (Auto) 86.7 H, Lymph % (Auto) 6.9 L, [place] % (Auto) 5.1, Eos % (Auto) 0.1, Baso % (Auto) 0.2, Absolute Neuts (auto) 22.4 H, Absolute Lymphs (auto) 1.77, Nucleated RBC % 0.1, Differential Comment , APTT 103.4 H*, Sodium 139, Potassium 3.5, Chloride 106, Carbon Dioxide 26.0, Anion Gap 7, BUN 69 H, Creatinine 1.45 H, Estim Creat Clear Calc 19.26, Est GFR (MDRD) Af Amer 44 L, Est GFR (MDRD) Non-Af 36 L, BUN/Creatinine Ratio 47.6 H, Glucose 134 H, Calcium 9.3, Phosphorus 1.6 L, Magnesium 1.5 L, Total Bilirubin 0.50, AST 23, ALT 23, Alkaline Phosphatase 68, Total Protein 6.7, Albumin 2.6 L, Globulin 4.1, Albumin/Globulin Ratio 0.6 L, Lipase 143 H 10/08/23 11:15: POC Glucose 107 H 10/08/23 16:24: POC Glucose 137 H Micro: Microbiology 10/07/23 20:17 Urine, Catheterized Urine Culture - Preliminary Gram negative bakari Radiography Diagnostic Testing: Radiology Impression Abdomen/Pelvis CT 10/07/23 18:47 IMPRESSION: Findings consistent with uncomplicated acute pancreatitis. Correlate clinically. Electronically Signed: Gianluca Pino DO at 20:38 EDT , Chest X-Ray 10/07/23 19:35 IMPRESSION: 1. Status post CABG. Mild apparent cardiomegaly and/or pericardial effusion. 2. Minimal lingular and/or left lower lobe airspace disease may be scarring, atelectasis, or perhaps pneumonia. Electronically Signed: Gianluca Pino DO at 20:15 EDT , MRCP 10/08/23 03:12 IMPRESSION: Acute pancreatitis. As above. Electronically Signed: Rolf Mg MD at 10:50 EDT , Physical Exam Const alert, oriented x3, no apparent distress, average body habitus and healthy appearing General Appearance: cooperative, well kempt and well developed Orientation / Consciousness: awake, oriented to person, oriented to place and oriented to time HEENT normocephalic, head/scalp atraumatic and moist oral mucous membranes Eyes PERRL, EOMs intact bilaterally and conjunctivae normal Neck supple, no JVD, thyroid normal and no carotid bruits General: trachea midline Resp normal respiratory effort, no retractions, no use of accessory muscles and clear to auscultation bilaterally Auscultation: Negative for rales, rhonchi or wheezes Cardio regular rate, regular rhythm, S1 normal heart sound, S2 normal heart sound, no murmurs, no rub and no gallops GI normal to inspection, nondistended, normoactive bowel sounds, soft to palpation, non-tender and non-distended Extremity no clubbing, cyanosis or edema Skin no rashes or lesions noted General Skin Exam: no breakdown Neuro oriented x3, CN's II-XII intact bilaterally, moves all extremities, no focal motor deficits and no sensory deficits noted Sensorium / Orientation: awake and alert Speech: speech normal Psych affect normal Assessment & Plan Assessment/Plan (1) Cystitis: PLAN: Plan 1. Acute cystitis-patient will continue on IV antibiotics at this time, CBC will be repeated tomorrow, await culture results #2 elevated troponin-I do not believe the patient has had a type II non-STEMI, this troponin elevation is flat and I believe it is nonspecific. The exact etiology of the troponin elevation is unknown at this time #3 mild pancreatitis, lipase was minimally elevated, I have advanced patient's diet today, not sure what the etiology of the pancreatitis could be #4 hypokalemia-resolved, monitor as necessary #5 dehydration on a backdrop of chronic kidney disease stage IIIb-I do not believe the patient has acute kidney injury, monitor labs, fluid is being administered #6 hypophosphatemia and [id number]-[id number] will be given to the patient, labs will be checked tomorrow, I will recheck the patient's magnesium tomorrow Total clinical time spent by myself addressing the patient's medical issues, reviewing all of her data, and collaborating with patient's care team: 50 minutes Charges/Coding Visit Charges Inpatient E&M: 47254 [facility] Hosp L3
[2023-10-08] MEDS: Atorvastatin Calcium 40 MG Tablet PO (22:00)
[2023-10-08] MEDS: Menthol/Lanolin/Calamine/Znox 113 GM Tube 1 APPLIC TOPICAL (22:00)
[2023-10-08] MEDS: Na Biphos/Potassium Phosphate PACKET 2 PACKET PO (22:00)
[2023-10-08 23:54] LABS: Bedside Glucose 110 mg/dL (74-106)
[2023-10-09 04:00] VITALS: BP 133/66; PULSE 100; RESP 16; TEMP 36.6; O2SAT 98
[2023-10-09 06:00] VITALS: BMI 25.7
[2023-10-09 06:05] LABS: Bedside Glucose 53 mg/dL (74-106)
[2023-10-09 06:38] LABS: Bedside Glucose 71 mg/dL (74-106)
[2023-10-09 07:02] LABS: Absolute Lymphocyte Count 1.83 X10^3/uL (0.83-4.51); Absolute Neutrophil Count 17.8 X10^3/uL (2.0-7.7); Basophil# 0.03 X10^3/uL; Basophil% 0.1 % (0-1); Eosinophil# 0.02 X10^3/uL; Eosinophils% 0.1 % (0-5); Hematocrit 32.7 % (37-47); Hemoglobin 10.3 g/dL (12.0-15.0); Lymphocyte # 1.83 X10^3/ul (0.83-4.51); Lymphocyte % 8.7 % (19-41); Mean Corp Hgb Conc 31.5 g/dL (32-36); Mean Corpuscular Hgb 29.6 pg (27.0-32.0); Mean Platelet Vol. 10.7 fl (6.2-12.0); Monocyte# 1.16 X10^3/uL; Monocyte% 5.5 % (0-10); NRBC Flagged by Analyzer 0 % (0-5); Neutrophil # 17.75 X10^3/uL (2.7-7.7); Neutrophil % 84.1 % (47-70); Platelet Count 280 K/mm3 (150-450); RBC Distribution Width CV 14.4 % (11.6-14.6); Red Blood Count 3.48 M/mm3 (4.2-5.4); White Blood Count 21.1 K/mm3 (4.4-11.0)
[2023-10-09] MEDS: KCL 20MEQ in 0.9% NS 20 MEQ/1,000 ML IV.SOLN. 100 MEQ IV (07:54)
[2023-10-09 08:00] LABS: Albumin, Serum 2.4 g/dL (3.2-5.0); BUN 45 mg/dL (7-18); BUN/Creat Ratio 38.1 RATIO (10-20); Chloride 109 mmol/L (98-107); Creatinine, Serum 1.18 mg/dL (0.55-1.02); EST Glomerular Filtration Rate 46 mL/min (>60); Est Glom Filt Rate - Afr Amer 56 mL/min (>60); Estimated Creatinine Clearance 23.67 ml/min; Glucose 53 mg/dL (74-106); Magnesium 1.4 mg/dL (1.6-2.6); Phosphorus 1.7 mg/dL (2.5-4.9); Potassium 3.4 mmol/L (3.5-5.1); Sodium Level 139 mmol/L (136-145)
[2023-10-09 09:00] VITALS: BP 150/82; PULSE 92; RESP 16; TEMP 36.6; O2SAT 97
[2023-10-09] MEDS: Aspirin 81 MG TAB.CHEW PO (09:02)
[2023-10-09] MEDS: Menthol/Lanolin/Calamine/Znox 113 GM Tube 1 APPLIC TOPICAL ×2 (09:03→20:46)
[2023-10-09] MEDS: Pantoprazole Sodium 40 MG in 0.9% Normal Saline (100mL MB+) 100 ML 330 MG IV (09:03)
[2023-10-09] MEDS: 0.9% Saline Lock 10 ML Syringe IV ×3 (09:04→20:46)
--- NOTE | 2023-10-09 09:22 | CASEMGMT ---
Social Work- A list of SNF providers including quality and resource use data and consistent with the patient?s preferred geographic region, medical needs, and insurance network were provided from the [employer] Guide and will be provided to ptALBERTO Ruiz
[2023-10-09] MEDS: 0.9% Normal Saline (250mL Bag) 250 ML 15 ML IV (09:30)
--- NOTE | 2023-10-09 09:33 | CASEMGMT ---
This DELFINA and DELFINA Johnson went to patient's room. Introduced selves and role at [facility]. SW asked patient if she still feels okay going home at discharge. Patient said she does and her daughter will be in [place] tomorrow to be with her. SW thanked her. Nayeli WHITLEY
[2023-10-09] MEDS: Piperacil/Tazobactam 3.375 GM in 0.9% Normal Saline (50mL MB+) 50 ML IV ×2 (09:58→20:47)
[2023-10-09 12:02] LABS: Bedside Glucose 199 mg/dL (74-106)
[2023-10-09] MEDS: Potassium Phosphate 15 MM in 0.9% Normal Saline (250mL Bag) 250 ML 125 MM IV (14:22)
[2023-10-09] MEDS: Magnesium Sulfate 2 GM in Dextrose 5%-Water (100mL Bag) 100 ML IV (14:25)
[2023-10-09 15:31] VITALS: BP 140/79; PULSE 98; RESP 17; TEMP 36.6; O2SAT 99
[2023-10-09] MEDS: Insulin Lispro 100 UNIT/ML INSULN.PEN SC ×2 (16:41→20:50)
[2023-10-09 17:01] LABS: Bedside Glucose 215 mg/dL (74-106)
--- NOTE | 2023-10-09 18:20 | PCM.PN.HOSP ---
Reason for Visit Reason for Visit: Diagnoses Elevated white blood cell count, unspecified (10/07/23) Dehydration (10/07/23) Acute pancreatitis without necrosis or infection, unspecified (10/07/23) Acute kidney failure, unspecified (10/07/23) Acute cystitis without hematuria (10/07/23) Cystitis, unspecified without hematuria (10/07/23) Bilious vomiting (10/07/23) Weakness (10/07/23) Other specified abnormal findings of blood chemistry (10/07/23) Subjective Subjective Patient was seen and examined today, she does not appear to be in any distress, her white count now is down to 21,000. Urine culture grew out small numbers of ESBL E. coli, patient remains on Zosyn at the present time. Patient's magnesium and phosphorus was low, I gave her additional supplementation today with IV magnesium and phosphate. Objective Data Objective Data Vital Signs: Vital Signs Temp Pulse Resp BP Pulse Ox O2 Del Method O2 Flow Rate 97.8 F 98 17 140/79 H 99 Room Air 2 10/09/23 15:31 10/09/23 15:31 10/09/23 15:31 10/09/23 15:31 10/09/23 15:31 10/09/23 15:33 10/09/23 07:30 Oxygen Flow Rate (L/min) 2 Oxygen Delivery Method Room Air Weight: 53.8 kg Body Mass Index (BMI) 25.7 Intake & Output: Intake and Output for Last 24 Hours 10/07/23 10/08/23 10/09/23 23:59 23:59 23:59 Intake Total 1160 / 1160 2730.18 / 2730.18 3132.17 / 3132.17 Balance 1160 / 1160 2730.18 / 2730.18 3132.17 / 3132.17 Lab / Micro Data 10/09/23 04:55 10/09/23 04:55 Labs: Laboratory Results - last 24 hr 10/08/23 22:02: POC Glucose 110 H 10/09/23 04:55: WBC 21.1 H, RBC 3.48 L, Hgb 10.3 L, Hct 32.7 L, MCV 94.0, MCH 29.6, MCHC 31.5 L, RDW Std Deviation 49.0 H, RDW Coeff of Bin 14.4, Plt Count 280, MPV 10.7, Immature Gran % (Auto) 1.500 H, Neut % (Auto) 84.1 H, Lymph % (Auto) 8.7 L, [place] % (Auto) 5.5, Eos % (Auto) 0.1, Baso % (Auto) 0.1, Absolute Neuts (auto) 17.8 H, Absolute Lymphs (auto) 1.83, Nucleated RBC % 0, Sodium 139, Potassium 3.4 L, Chloride 109 H, Carbon Dioxide 24.0, BUN 45 H, Creatinine 1.18 H, Estim Creat Clear Calc 23.67, Est GFR (MDRD) Af Amer 56 L, Est GFR (MDRD) Non-Af 46 L, BUN/Creatinine Ratio 38.1 H, Glucose 53 L, Calcium 9.0, Phosphorus 1.7 L, Magnesium 1.4 L, Albumin 2.4 L 10/09/23 05:44: POC Glucose 53 L 10/09/23 06:19: POC Glucose 71 L 10/09/23 11:44: POC Glucose 199 H 10/09/23 16:38: POC Glucose 215 H Micro: Microbiology 10/07/23 20:17 Urine, Catheterized Urine Culture - Preliminary ESBL Escherichia coli Physical Exam Narrative alert, oriented x3, no apparent distress, average body habitus and healthy appearing General Appearance: cooperative, well kempt and well developed Orientation / Consciousness: awake, oriented to person, oriented to place and oriented to time HEENT normocephalic, head/scalp atraumatic and moist oral mucous membranes Eyes PERRL, EOMs intact bilaterally and conjunctivae normal Neck supple, no JVD, thyroid normal and no carotid bruits General: trachea midline Resp normal respiratory effort, no retractions, no use of accessory muscles and clear to auscultation bilaterally Auscultation: Negative for rales, rhonchi or wheezes Cardio regular rate, regular rhythm, S1 normal heart sound, S2 normal heart sound, no murmurs, no rub and no gallops GI normal to inspection, nondistended, normoactive bowel sounds, soft to palpation, non-tender and non-distended Extremity no clubbing, cyanosis or edema Skin no rashes or lesions noted General Skin Exam: no breakdown Neuro oriented x3, CN's II-XII intact bilaterally, moves all extremities, no focal motor deficits and no sensory deficits noted Sensorium / Orientation: awake and alert Speech: speech normal Psych affect normal Assessment & Plan Assessment/Plan (1) Cystitis: PLAN: Plan 1. Acute cystitis-patient will continue on IV antibiotics at this time, CBC will be repeated tomorrow, again culture showed ESBL E. coli #2 elevated troponin-I do not believe the patient has had a type II non-STEMI, this troponin elevation is flat and I believe it is nonspecific. The exact etiology of the troponin elevation is unknown at this time #3 mild pancreatitis, lipase was minimally elevated, I have advanced patient's diet today, not sure what the etiology of the pancreatitis could be #4 hypokalemia-renal profile will be repeated tomorrow, patient continues to receive potassium through her IV #5 dehydration on a backdrop of chronic kidney disease stage IIIb-I do not believe the patient has acute kidney injury, monitor labs, fluid is being administered at a lower rate starting today #6 hypophosphatemia and hypomagnesemia-IV phosphate and magnesium were given to the patient today, renal profile will be rechecked tomorrow Total clinical time spent by myself addressing the patient's medical issues, reviewing all of her data, and collaborating with patient's care team: 35 minutes Charges/Coding Visit Charges Inpatient E&M: 21544 [facility] Hosp L2
[2023-10-09 20:41] VITALS: BP 155/90; PULSE 108; RESP 16; TEMP 36.2; O2SAT 98
[2023-10-09] MEDS: KCL 20MEQ in 0.9% NS 20 MEQ/1,000 ML IV.SOLN. 75 MEQ IV (20:45)
[2023-10-09] MEDS: Atorvastatin Calcium 40 MG Tablet PO (20:50)
[2023-10-09 22:39] LABS: Bedside Glucose 185 mg/dL (74-106)
[2023-10-10 01:18] LABS: Bedside Glucose 129 mg/dL (74-106)
[2023-10-10 02:56] VITALS: BP 158/75; PULSE 98; RESP 16; TEMP 36.4; O2SAT 97
--- NOTE | 2023-10-10 03:43 | NURSING ---
Notified by [employer] that patient had sudden right sided weakness while ambulating back to bed from bathroom. NIH completed, scored a 1 for right upper extremity drift. Blood sugar 129. Pt has no complaints besides feeling weak. notified, no new orders.
[2023-10-10 05:34] VITALS: BMI 27.9
[2023-10-10] MEDS: Piperacil/Tazobactam 3.375 GM in 0.9% Normal Saline (50mL MB+) 50 ML IV (06:35)
[2023-10-10 07:22] VITALS: O2SAT 93
[2023-10-10 08:15] LABS: Bedside Glucose 90 mg/dL (74-106)
[2023-10-10 09:05] VITALS: BP 150/90; PULSE 101; RESP 16; TEMP 36.4; O2SAT 99
[2023-10-10 09:25] LABS: Absolute Lymphocyte Count 2.13 X10^3/uL (0.83-4.51); Absolute Neutrophil Count 16.8 X10^3/uL (2.0-7.7); Basophil# 0.05 X10^3/uL; Basophil% 0.2 % (0-1); Eosinophil# 0.11 X10^3/uL; Eosinophils% 0.5 % (0-5); Hematocrit 30.5 % (37-47); Hemoglobin 9.7 g/dL (12.0-15.0); Lymphocyte # 2.13 X10^3/ul (0.83-4.51); Lymphocyte % 10.3 % (19-41); Mean Corp Hgb Conc 31.8 g/dL (32-36); Mean Corpuscular Hgb 29.4 pg (27.0-32.0); Mean Corpuscular Volume 92.4 fL (81-99); Mean Platelet Vol. 10.6 fl (6.2-12.0); Monocyte# 1.25 X10^3/uL; NRBC Flagged by Analyzer 0 % (0-5); Neutrophil # 16.82 X10^3/uL (2.7-7.7); Neutrophil % 81.3 % (47-70); Platelet Count 284 K/mm3 (150-450); RBC Distribution Width CV 14.6 % (11.6-14.6); RBC Distribution Width SD 49.5 fl (35.1-43.9); White Blood Count 20.7 K/mm3 (4.4-11.0)
[2023-10-10 09:46] LABS: Albumin, Serum 2.2 g/dL (3.2-5.0); BUN 26 mg/dL (7-18); BUN/Creat Ratio 24.8 RATIO (10-20); Calcium,Total 8.6 mg/dL (8.5-10.1); Chloride 106 mmol/L (98-107); Creatinine, Serum 1.05 mg/dL (0.55-1.02); EST Glomerular Filtration Rate 53 mL/min (>60); Est Glom Filt Rate - Afr Amer 64 mL/min (>60); Estimated Creatinine Clearance 29.67 ml/min; Glucose 124 mg/dL (74-106); Magnesium 1.6 mg/dL (1.6-2.6); Phosphorus 1.7 mg/dL (2.5-4.9); Potassium 4.2 mmol/L (3.5-5.1); Sodium Level 136 mmol/L (136-145)
[2023-10-10] MEDS: Pantoprazole Sodium 40 MG in 0.9% Normal Saline (100mL MB+) 100 ML 330 MG IV (10:23)
[2023-10-10] MEDS: KCL 20MEQ in 0.9% NS 20 MEQ/1,000 ML IV.SOLN. 75 MEQ IV (10:23)
[2023-10-10] MEDS: Aspirin 81 MG TAB.CHEW PO (10:24)
[2023-10-10] MEDS: dilTIAZem CD 180 MG Capsule PO (10:24)
[2023-10-10] MEDS: Insulin Glargine-YFGN 100 UNIT/ML Pen 8 UNIT SC (10:25)
[2023-10-10] MEDS: Menthol/Lanolin/Calamine/Znox 113 GM Tube 1 APPLIC TOPICAL (10:25)
--- NOTE | 2023-10-10 10:30 | CASEMGMT ---
SERENA FIGUEROA in to discuss needs at discharge. RN HENRY reviewed needs at discharge and patient would like [facility]. A list of [facility] providers including quality and resource use data and consistent with the patient?s preferred geographical region, medical needs, and insurance network were provided from the [employer] Guide. Patient states she prefers [facility] as she has had them in the past. Patient had no further questions or concerns. SERENA FIGUEROA updated discharge orthotics prosthetics assistant to send referral to [facility]. CM will continue to follow this patient and plan for a safe discharge.
--- NOTE | 2023-10-10 12:23 | CASEMGMT ---
Addendum entered by Marjorie Torres 10/10/23 14:54: [facility] is able to accept patient for SN/PT. RN CM notified and order was updated. SOC is tomorrow. Marjorie Torres, Discharge Planning Asst. Original Note: [facility] Marjorie Torres, Discharge Planning Asst.
--- NOTE | 2023-10-10 14:37 | DCINST_ITS ---
Discharge Instructions Diet Discharge Diet: 1800 Calorie Control Diet Activity Discharge Activity: Return to Normal Activity Weight Bearing Status: Full weight bearing Follow Up Care Test Results: Test results from this visit will be discussed in further detail at your follow- up appointment, if applicable. Discharge Plan Admission Admit Date/Time: 10/07/23 21:42 Primary Reason for Your Visit: cystitis, pancreatitis Attending Provider: Stephan Trinidad Primary Care Provider: Sravan Rossi Consulting Providers: Gumaro Anderson; Marcello Navarro Discharge Orders/Prescriptions Prescriptions: New insulin glargine-yfgn 100 unit/mL (3 mL) Insulin Pen 8 unit subcut DAILY Qty: 0 0RF amoxicillin-pot clavulanate 500-125 mg tablet 1 tab PO TID Qty: 14 0RF Rx Instructions: one three times a day with food diltiazem HCl [Cardizem CD] 240 mg capsule,extended release 24hr 240 mg PO DAILY Qty: 30 0RF Rx Instructions: start on 10/11/23 glimepiride 2 mg tablet 2 mg PO DAILY Qty: 30 0RF Continued atorvastatin 40 mg tablet 40 mg PO QHS Patient Comments: Take 1 tablet by mouth daily allopurinol 100 mg tablet 100 mg PO DAILY Patient Comments: take 1 tablet by mouth daily aspirin 81 mg capsule 81 mg PO DAILY Discontinued clonidine HCl 0.2 mg tablet 0.2 mg PO BID Patient Comments: take 1 tablet by mouth twice a day glimepiride 4 mg tablet 4 mg PO DAILY Patient Comments: TAKE ONE TABLET BY MOUTH EVERY MORNING BEFORE BREAKFAST diltiazem HCl 180 mg capsule,extended release 24hr 180 mg PO DAILY Patient Comments: take 1 capsule by mouth once daily chlorthalidone 25 mg tablet 25 mg PO DAILY Patient Comments: take 1 tablet by mouth once daily pt. unsure if she takes this medication insulin degludec [Tresiba FlexTouch U-100] 100 unit/mL (3 mL) insulin pen 10 unit subcut DAILY Referrals / Follow Up: Sravan Rossi MD [Primary Care Provider] - In 1 Week Disposition Disposition (needs filled in before D/C Order can be placed): Home Health Service
--- NOTE | 2023-10-10 14:53 | DS.PCM_ITS ---
Providers Date of Admission: 10/07/23 Date of Discharge: 10/10/23 Primary Care Physician: Dr. Sravan Rossi MD Consultations 10/08/23 03:15 Consult: Cardiology Routine Consulting Provider: Gumaro Anderson Reason for Consult: Non-STEMI type II EMERGENT Consult: No MD Notified: Yes Date Notified: 10/08/23 Time Notified: 03:16 Method of Notification: ED Physician Initiated Method of Consult:: In-Person Reason For Visit: ACUTE PANCREATITIS, ACUTE CYSTITIS, ELEVATED TROP Diagnosis Discharge Diagnosis (1) Cystitis: Status: Acute Code(s): N30.90 - Cystitis, unspecified without hematuria Plan 1. Acute cystitis-patient will continue on IV antibiotics at this time, CBC will be repeated tomorrow, again culture showed ESBL E. coli #2 elevated troponin-I do not believe the patient has had a type II non-STEMI, this troponin elevation is flat and I believe it is nonspecific. The exact etiology of the troponin elevation is unknown at this time #3 mild pancreatitis, lipase was minimally elevated, I have advanced patient's diet today, not sure what the etiology of the pancreatitis could be #4 hypokalemia-renal profile will be repeated tomorrow, patient continues to receive potassium through her IV #5 dehydration on a backdrop of chronic kidney disease stage IIIb-I do not believe the patient has acute kidney injury, monitor labs, fluid is being administered at a lower rate starting today #6 hypophosphatemia and hypomagnesemia-IV phosphate and magnesium were given to the patient today, renal profile will be rechecked tomorrow Total clinical time spent by myself addressing the patient's medical issues, reviewing all of her data, and collaborating with patient's care team: 35 minutes Medications at Discharge Home Medications allopurinol 100 mg tablet 100 mg PO DAILY gout 06/18/21 atorvastatin 40 mg tablet 40 mg PO QHS cholesterol 06/18/21 aspirin 81 mg capsule 81 mg PO DAILY 10/07/23 amoxicillin 500 mg-potassium clavulanate 125 mg tablet 1 tab PO TID #14 tabs 10/10/23 diltiazem HCl 240 mg capsule,extended release 24 hr (Cardizem CD) 240 mg PO DAILY #30 caps 10/10/23 glimepiride 2 mg tablet 2 mg PO DAILY #30 tabs 10/10/23 insulin glargine-yfgn 100 unit/mL (3 mL) subcutaneous pen 8 unit (0.08 mL) subcut DAILY #0 mL 10/10/23 Hospital Course Operations None Procedures None Summary of Care Provided Minutes Spent on Discharge: 32 Hospital Course: This 87-year-old white female was seen in the emergency room at [facility] with complaints of nausea and vomiting. This had occurred 2 days prior to being seen in the emergency room. Workup in the emergency room included a CT of the abdomen that was positive for signs of acute pancreatitis, patient had minimal elevation of lipase at 166, urinalysis suggested the presence of acute cystitis, troponin was elevated at 163 and her potassium was low at 3.2. Patient was admitted to PCU, given IV fluids, I did not feel it was necessary for cardiology consult on the patient because all her troponins were in a similar range pattern, I did not feel that the patient had a type II ID. Patient improved during her hospitalization. On 10/10/2023, patient was seen and examined: On examination she appeared in good health and spirits, she does not appear to be in any distress. Vital signs as documented. Skin warm and dry and without overt rashes. Neck without JVD, thyroid appears normal, trachea is midline, neck is supple. Lungs clear, normal air movement was noted. Heart exam notable for regular rhythm, normal sounds and absence of murmurs, rubs or gallops. Abdomen unremarkable and without evidence of organomegaly, masses, or abdominal aortic enlargement, bowel sounds are present in all 4 quadrants, no abdominal tenderness was noted. Extremities nonedematous, no cyanosis was noted, no clubbing was noted. Neuro: Cranial nerves II through XII are grossly intact, no focal motor deficits were noted, sensation to light touch and pinprick is intact, motor exam 5/5 throughout. Psych: Patient is alert and oriented x3, she does not appear anxious or depressed, she does not appear agitated. Patient appears stable for discharge home on 10/10/2023. Weight / BMI Weight Weight: 58.6 kg Body Mass Index (BMI) 27.9 ABG / Lab / Microbiology Data 10/10/23 09:15 10/10/23 09:15 Laboratory: Laboratory Results - last 24 hr 10/09/23 16:38: POC Glucose 215 H 10/09/23 20:44: POC Glucose 185 H 10/10/23 00:59: POC Glucose 129 H 10/10/23 06:37: POC Glucose 90 10/10/23 09:15: WBC 20.7 H, RBC 3.30 L, Hgb 9.7 L, Hct 30.5 L, MCV 92.4, MCH 29.4, MCHC 31.8 L, RDW Std Deviation 49.5 H, RDW Coeff of Bin 14.6, Plt Count 284, MPV 10.6, Immature Gran % (Auto) 1.700 H, Neut % (Auto) 81.3 H, Lymph % (Auto) 10.3 L, [place] % (Auto) 6.0, Eos % (Auto) 0.5, Baso % (Auto) 0.2, Absolute Neuts (auto) 16.8 H, Absolute Lymphs (auto) 2.13, Nucleated RBC % 0, Sodium 136, Potassium 4.2, Chloride 106, Carbon Dioxide 23.0, BUN 26 H, Creatinine 1.05 H, Estim Creat Clear Calc 29.67, Est GFR (MDRD) Af Amer 64, Est GFR (MDRD) Non-Af 53 L, BUN/Creatinine Ratio 24.8 H, Glucose 124 H, Calcium 8.6, Phosphorus 1.7 L, Magnesium 1.6, Albumin 2.2 L Microbiology: Microbiology 10/07/23 20:17 Urine, Catheterized Urine Culture - Final ESBL Escherichia coli D/C Instructions Discharge Diet: 1800 Calorie Control Diet Weight Bearing Status: Full weight bearing Meaningful Use Info Meaningful Use Meaningful Use Diagnoses (Choose all that apply): None applicable Ischemic Stroke Statin Dosing Therapy Reference: STATIN DOSE THERAPY REFERENCE: * Patients > 75 years receive moderate or high dose statin therapy. * Patients 75 years or YOUNGER should receive HIGH intensity statin dose unless contraindicated. You will be required to document reason for non-treatment if statin daily dose does not meet guidelines. HIGH DOSE STATIN THERAPY DAILY Atorvastatin > than or = to 40 mg Rosuvastatin > than or = to 20 mg Amlodipine + Atorvastatin > than or = to 2.5/40 mg Ezetimibe + Simvastatin 10/80 mg Simvastatin 80mg Discharge Plan Admission Admit Date/Time: 10/07/23 21:42 Primary Reason for Your Visit: cystitis, pancreatitis Attending Provider: Stephan Trinidad Primary Care Provider: Sravan Rossi Consulting Providers: Gumaro Anderson; Marcello Navarro Instructions Additional Instructions / Restrictions: Please omit home insulin dosage Discharge Orders/Prescriptions Prescriptions: New insulin glargine-yfgn 100 unit/mL (3 mL) Insulin Pen 8 unit subcut DAILY Qty: 0 0RF amoxicillin-pot clavulanate 500-125 mg tablet 1 tab PO TID Qty: 14 0RF Rx Instructions: one three times a day with food diltiazem HCl [Cardizem CD] 240 mg capsule,extended release 24hr 240 mg PO DAILY Qty: 30 0RF Rx Instructions: start on 10/11/23 glimepiride 2 mg tablet 2 mg PO DAILY Qty: 30 0RF Continued atorvastatin 40 mg tablet 40 mg PO QHS Patient Comments: Take 1 tablet by mouth daily allopurinol 100 mg tablet 100 mg PO DAILY Patient Comments: take 1 tablet by mouth daily aspirin 81 mg capsule 81 mg PO DAILY Discontinued clonidine HCl 0.2 mg tablet 0.2 mg PO BID Patient Comments: take 1 tablet by mouth twice a day glimepiride 4 mg tablet 4 mg PO DAILY Patient Comments: TAKE ONE TABLET BY MOUTH EVERY MORNING BEFORE BREAKFAST diltiazem HCl 180 mg capsule,extended release 24hr 180 mg PO DAILY Patient Comments: take 1 capsule by mouth once daily chlorthalidone 25 mg tablet 25 mg PO DAILY Patient Comments: take 1 tablet by mouth once daily pt. unsure if she takes this medication insulin degludec [Tresiba FlexTouch U-100] 100 unit/mL (3 mL) insulin pen 10 unit subcut DAILY Referrals / Follow Up: Sravan Rossi MD [Primary Care Provider] - 10/17/23 10:00 am Disposition Disposition (needs filled in before D/C Order can be placed): Home Health Service Charges/Coding Visit Charges Inpatient E&M: 14924 Disch Hosp >30min
[2023-10-10 15:18] VITALS: BP 133/69; PULSE 87; RESP 18; TEMP 36.3; O2SAT 96
--- NOTE | 2023-10-10 15:39 | CASEMGMT ---
Patient has order for discharge. [facility] has been setup with [facility] with start of care for tomorrow. SERENA FIGUEROA updated patient regarding [facility] start of care for tomorrow. Patient denies further needs at discharge, neighbor at bedside. Daughter arrives tonight to stay with patient. Patient had no further questions or concerns.
--- NOTE | 2023-10-10 17:29 | CASEMGMT ---
SERENA FIGUEROA NOTE: Dr Trinidad signed [facility] order and it was sent to [facility] via [facility] per [place] @ [facility] request. Christa ANGULO RN CM
== END 2023-10-10 17:23 | disposition home health service (06) | DRG 689 ==
LOC: ED 20:57 → PCU 22:46
PROVIDERS: Admitting Provider Internal Medicine; Emergency Provider Emergency Medicine; PCP Family Medicine; Visit Provider Internal Medicine
DX: N30.00 Acute cystitis without hematuria (principal); K85.90 Acute pancreatitis without necrosis or infection, unspecified; E11.22 Type 2 diabetes mellitus with diabetic chronic kidney disease; E11.65 Type 2 diabetes mellitus with hyperglycemia; B96.20 Unspecified Escherichia coli [E. coli] as the cause of diseases classified elsewhere; E78.5 Hyperlipidemia, unspecified; I48.91 Unspecified atrial fibrillation; E86.0 Dehydration; J44.9 Chronic obstructive pulmonary disease, unspecified; N18.32 Chronic kidney disease, stage 3b; I12.9 Hypertensive chronic kidney disease with stage 1 through stage 4 chronic kidney disease, or unspecified chronic kidney disease; M10.9 Gout, unspecified; E83.52 Hypercalcemia; I25.10 Atherosclerotic heart disease of native coronary artery without angina pectoris; E87.6 Hypokalemia; G47.33 Obstructive sleep apnea (adult) (pediatric); M19.90 Unspecified osteoarthritis, unspecified site; R11.14 Bilious vomiting; E83.42 Hypomagnesemia; Z79.84 Long term (current) use of oral hypoglycemic drugs; I49.3 Ventricular premature depolarization; Z79.82 Long term (current) use of aspirin; Z87.891 Personal history of nicotine dependence; Z95.1 Presence of aortocoronary bypass graft; R79.89 Other specified abnormal findings of blood chemistry
CPT/HCPCS: 36415; 71045; 74177; 74181; 80053; 80069; 81001; 82962; 83036; 83605; 83690; 83735; 83970; 84100; 84484; 85025; 85730; 87077; 87086; 87088; 87186; 93005; 94668; 97162; 97166; 97530; 97535; 99285; J7030; J7050; P9612; A4216; J2405

== ENCOUNTER → 2024-10-07 | Outpatient (CLI) | payer MEDICARE, OTHER, SELFPAY ==
--- NOTE | 2024-10-07 16:06 | US_ITS ---
PROCEDURE: KIDNEY AND BLADDER 10/07/2024 REASON FOR EXAM: CKD IV TECHNIQUE: Bilateral renal ultrasound. FINDINGS: Kidneys: Increased echogenicity of the renal cortex consistent with chronic medical renal disease. [place]: None Cysts or Masses: 1.4 cm exophytic cyst lower pole left kidney. Other: RIGHT Kidney Size: 10.0 x 4.5 x 3.7 Volume: mL Parenchymal Thickness: (>14mm is normal) Cortical Thickness (if discernible): 0.9 (>6mm is normal) LEFT Kidney Size: 9.1 x 3.7 x 3.9 Volume: mL Parenchymal Thickness: (>14mm is normal) Cortical Thickness (if discernible): 1.0 (>6mm is normal) US/Kidney and Bladder IMPRESSION: Chronic medical renal disease but no hydronephrosis to suggest obstruction. Reading Location: [id number]
== END | disposition home or self-care (01) ==
LOC: US 16:05
PROVIDERS: PCP Family Medicine; Referring Provider Internal Medicine Nephrology; Visit Provider Internal Medicine Nephrology
DX: N18.4 Chronic kidney disease, stage 4 (severe) (principal)
CPT/HCPCS: 76770